=== PATIENT | female | born 1975 | race Caucasian/White ===

== ENCOUNTER 2017-04-21 11:50 | Emergency (ER) | payer OTHER, SELFPAY ==
[2017-04-21 11:53] VITALS: BP 116/83; PULSE 91; RESP 15; TEMP 36.8; O2SAT 91; BMI 17.1
[2017-04-21 12:35] VITALS: BP 107/76; PULSE 76; RESP 16; TEMP 37.1; O2SAT 94
[2017-04-21 12:38] VITALS: TEMP 37.1
[2017-04-21] MEDS: 0.9% Normal Saline 1,000 ML 999 ML IV (12:41)
--- NOTE | 2017-04-21 13:00 | RAD_ITS ---
STUDY: X-RAY CHEST REASON FOR EXAM: Female, 41 years old. Cough. TECHNIQUE: AP and lateral views of the chest. COMPARISON: Comparison is made with prior study dated June 14, 2015. FINDINGS: EKG electrodes are seen. A right-sided portacatheter is present. The tip is at the junction of the superior vena cava and right atrium. Mild elevation of the right hemidiaphragm. The lungs are clear. Scattered calcified granulomas. There is no demonstrated pleural abnormality. Normal size heart. Normal mediastinum and jose cruz. Normal visualized pulmonary arteries. There is atherosclerotic tortuosity of the aortic arch and descending thoracic aorta. There is demineralization of the osseous structures. Normal visualized ribs, clavicles, and shoulders. There is no demonstrated abnormality of the visualized soft tissue structures of the upper abdomen. RAD/Chest PA and Lateral IMPRESSION: No acute abnormality is seen. Electronically Signed: Vinny Loaiza MD at 13:32 EST Tel [phone], Service support ,
[2017-04-21 13:05] LABS: International Normalized Ratio 1.1
[2017-04-21 13:08] LABS: Partial Thromboplast Time 136.9 Seconds (24.1-36.2)
[2017-04-21 13:09] LABS: Absolute Neutrophil Count 0.9 X10^3/uL (2.0-7.7); Basophil# 0.03 X10^3/uL; Basophil% 0.7 % (0-1); Differential Indicated SCAN CRITERIA MET; Eosinophil# 0.08 X10^3/uL; Eosinophils% 1.7 % (0-5); Hematocrit 38.6 % (37-47); Hemoglobin 12.9 g/dl (12.0-15.0); Lymphocyte % 69.4 % (19-41); Mean Corp Hgb Conc 33.4 g/gl (32-36); Mean Corpuscular Hgb 30.8 pg (27.0-32.0); Mean Corpuscular Volume 92.1 fL (81-99); Mean Platelet Vol. 13.3 fl (6.2-12.0); Monocyte# 0.38 X10^3/uL; Monocyte% 8.2 % (0-10); Neutrophil # 0.92 X10^3/uL (2.7-7.7); POSITIVE COUNT NO; POSITIVE DIFFERENTIAL YES; POSITIVE MORPHOLOGY NO; Platelet Count 172 K/mm3 (150-450); RBC Distribution Width CV 17.3 % (11.6-14.6); RBC Distribution Width SD 57.8 fl (35.1-43.9); Red Blood Count 4.19 M/mm3 (4.2-5.4); White Blood Count 4.6 K/mm3 (4.4-11.0)
[2017-04-21 13:13] LABS: Prothrombin Time (Protime)PT. 13.9 SECONDS (11.7-14.9)
--- NOTE | 2017-04-21 13:14 | ED.RN ---
ptt 136.[address] lab[address] dr herr aware
[2017-04-21 13:16] LABS: Lactic Acid 1.4 mmol/L (0.4-2.0)
[2017-04-21 13:24] VITALS: BP 99/71; PULSE 66; RESP 19; O2SAT 94
[2017-04-21 13:25] LABS: ALB/GLOB Ratio 0.7 RATIO (0.9-2.4); AST(SGOT) 76 U/L (15-37); Alanine Aminotransfer ALT/SGPT 46 U/L (13-56); Albumin, Serum 2.3 g/dL (3.2-5.0); Alkaline Phosphatase 101 U/L (45-117); Anion Gap 4 (5-15); BUN 9 mg/dL (7-18); Calcium,Total 7.5 mg/dL (8.5-10.1); Chloride 100 mmol/L (98-107); Creatinine, Serum < 0.15 mg/dL (0.55-1.02); EST Glomerular Filtration Rate 581 mL/min (>60); Est Glom Filt Rate - Afr Amer 703 mL/min (>60); Estimated Creatinine Clearance 449.85 ml/min; Globulin 3.2 g/dL (2.2-4.2); Glucose 153 mg/dL (74-106); Potassium 4.1 mmol/L (3.5-5.1); Protein, Total 5.5 g/dL (6.4-8.2); Sodium Level 136 mmol/L (136-145)
[2017-04-21 13:31] LABS: Acanthocytes 1+; Anisocytosis 1+; Hypochromasia RARE; Platelet Estimate ADEQUATE (ADEQ); Target Cells 1+
[2017-04-21 14:03] VITALS: BP 100/71; PULSE 66; RESP 17; O2SAT 93
--- NOTE | 2017-04-21 14:18 | ED.DCSUM_ITS ---
- ER Visit Summary Date of Service: 04/21/17 Chief Complaint: Cough History of Present Illness: The patient is a [address] Mishra. She has a history of pancreatic cancer and has had an extensive surgery for this including removal of her spleen. She reports that she has metastases to her liver and is not on chemo currently as it is slow growing. Patient reports she has she has a cough that began approximately 1 week ago. She was seen at an outlying facility and told that she had influenza. However, testing for this was not performed. She reports that she has had a fever at highest of 103.4? and chills. Reports that that has actually improved. She states that her cough is nonproductive. She has mild shortness of breath that is increased with coughing or exertion. She has chest pain with coughing only. She denies any abdominal pain. She has had nausea and a poor appetite. No vomiting, diarrhea, melena, or hematochezia. No dysuria or frequency. She is on her menstrual period now. She reports that she has a headache that is 6 out of 10 severity and generalized weakness. Physical Examination: Vitals: Stable. Afebrile. General: Cachectic and well-developed. Head: Normocephalic atraumatic. Neck: Supple, no lymphadenopathy. No JVD. Nontender. Cardiovascular: Regular rate and rhythm. No murmurs. Respiratory: No respiratory distress. Clear to auscultation bilaterally. Abdominal: Soft, nontender, nondistended, normal bowel sounds. No guarding, rebound, or peritoneal signs. Back: Nontender. Extremities: Nontender, no edema. Skin: Normal color, no rash. Neurologic: Alert and oriented ?3. Cranial nerves II through XII are intact. Normal strength and sensation. Psych: Normal affect. Test Results: CBC is remarkable for segment neutrophils of 20 and lymphocytes of 69. This does suggest a viral process. Chem-7 is marked for a creatinine of less than 0.15, glucose of 153, calcium is 7.5. LFTs are marked for an AST of 76, total protein of 5.5, and albumin 2.3. INR is 1.1. PTT is 136.9. The blood was obtained from her port which I suspect had heparin still present as the source of the elevated PTT. Lactic acid is normal. Chest x-ray is negative. Influenza is negative. Emergency Department Course and Treatment: Patient was given a liter bolus of normal saline. She is resting comfortably. She feels improved and would like to go home. Treatment Plan: Patient will be discharged with symptomatic care. Push fluids. Follow-up with Dr. Mishra in 1-2 days if not improving. Return to the emergency department for any worsening symptoms. Disposition: To home in improved and stable condition. Impression: 1. URI. 2. Status post splenectomy. 3. Pancreatic cancer with metastases. This note was generated with [employer] dictation software. It may contain incorrect words, spelling, and punctuation that were not noted in review of the chart prior to signing ED Disposition - Plan for ED Patient: Disposition: Home or Assisted Living Chief Complaint: Cough Instructions: ED Upper Resp Infec No Abx Tx Referrals: Shanda Mishra MD [Primary Care Provider] - 3-5 Days if not improving
[2017-04-21 14:42] VITALS: BP 99/69; PULSE 70; RESP 18; O2SAT 96
== END 2017-04-21 14:44 | disposition home or self-care (01) ==
LOC: ED 12:30
PROVIDERS: Emergency Provider Emergency Medicine; Family Provider Internal Medicine; PCP Internal Medicine
DX: J06.9 Acute upper respiratory infection, unspecified (principal); C25.9 Malignant neoplasm of pancreas, unspecified; C78.7 Secondary malignant neoplasm of liver and intrahepatic bile duct; Z90.81 Acquired absence of spleen; Z79.4 Long term (current) use of insulin; Z79.899 Other long term (current) drug therapy
CPT/HCPCS: 36415; 36591; 71046; 80053; 83605; 85025; 85610; 85730; 87040; 87804; 96360; 96361; 99283; J7030; A4216

== ENCOUNTER 2017-11-07 12:30 | Outpatient (RCR) | payer MEDICARE, SELFPAY ==
--- NOTE | 2017-10-20 14:40 | HP.PTEVAL ---
Patient's Visit Information SHRUTHI PIKE is a 42 year old F referred to Physical Therapy by LINN WHELAN with a diagnosis of Polymyositis. Date of Evaluation: 10/20/17 Physical Therapist: Cher Williamson - Visit Plan Frequency: 2x /Week Duration: 4 Weeks Plan: 60 min pool apts- will need therapist in pool- focus on LE, UE core strength and endurance - Subjective Subjective: Patient reports polymyositis- autoimmune effects certain muscle groups and a pancreatic cancer survivor which has mets on liver which is stable. Two together over the last 8 years has made it hard to do anything. It comes in waves- has been on crazy high dose steroids since April. April hospitalized could not drink and eat. Do know she can get stronger. Had rehab at home when she was release- walker around the house- and table exercises (PT and OT). Legs got stronger faster than her arms-ADL's more than strength training. Current status: can walk with a walker for stability-FWW- can do ADL's like a commode- can't use her arms overhead- due to decreased strength. Can walk around the house with the walker but use outside of the home. Home is handicapped accessible. Does not use her wc inside at home. Has A with ADL's- but is left at home without assistance and does fine with small tasks. Single story home- laundry is on the same floor- has a chair lift to get to the basement. Does not drive- lift to get her inside her car. Always has head to toe pain that is mild- get stiff and sore in the AM aniket after physical therapy- worse in the AM- worst: 5/10- global pain. Agg: mornings, movement, being active, diet Eases: medication- better warm. If its cold outside she is very stiff. Best: 0/10. Currently painfree. Goals: wants to walk without her walker in public places. Has not had therapy since . PMHx/meds: no changes- see scanned into chart. No N/T. Had one fall- about a month ago- tripped over the entry way and a cat- did not hit her head but fractured her spine L1. Sore but no other issues with it. No stairs but would like to do them. Sleep is not disturbed. No exercise restrictions. - Objective Posture: Fh, slightly slumped posturing. Observation: bluish rebeca skin coloring in extremeties- muscle wasting in distal extremeties greater than proximal. Mobility- uses w/c I from lobby to exam room (approx 300 feet), sit to stand- mod A x 1, sitting to supine- min A with LE, supine to sit- CGA. Gait: FWW- amb approx 50 feet with knee extension- rigid pattern with no fluidity- step to always leading with her right- slight circumduction. Straight cane and SBA- same pattern as above (approx 50 feet). Balance: 15 sec good balance with wide EDGARDO and narrow EDGARDO with eyes open. 15 sec fair balance with increased muscle activation and sway narrow EDGARDO with eyes closed. SLS- able to lift opposite LE but unable to remove hands from bar. Heel raise/toe raise: able but minimal clearance of the floor in standing with UE A for balance. Sensation: WNL. ROM: LE: Ankle: WFL, Knee/Hip: Passive WNL limited with strength. Cervical ROM: WNL Shoulder: flexion: 45 degrees, abd: 45 degrees, ER: WNL, IR: to belly Elbow: WNL, Wrist/Hand: WNL. Strength: Ankle DF: 3+/5 PF: 3+/5, Knee: extn: 2+/5 flexion: 2+/5, Hip: 2+/5 throughout Core: fair Scap:fair minus Shoulder: 2+/5 throughout Elbow: 2+/5, Wrist: 3+/5, Slip Injector And Applicator: equal bilateral but poor. All mobility has significant compensation patterns for completion of task - Goals Goal 1:: Patient will be I with HEP and progression Goal Time Frame: 4-6 Weeks Goal 2:: Patient will ambulate >300 feet with LRD, no assistance safely Goal Time Frame: 4-6 Weeks Goal 3:: Patient will asc/desc 8 stairs x 4 with min A and 2 HR Goal Time Frame: 4-6 Weeks Goal 4:: Patient will sit to stand with mod I Goal Time Frame: 4-6 Weeks - Rehabilitation Potential Physical Therapy Diagnosis: Patient presents with hypomobility- she has decreased ROM, strength and muscular endurance leading to poor posture, decreased ability to transfer and abnormal gait pattern. Rehabilitation Potential: Fair - Anticipated Interventions Patient/Client Instruction: Educate patient on: Benefits of Fitness Program For the Purpose of:: To increase tolerance to activity/condition/position Therapeutic Exercise to Include: Strength training, Endurance training, Balance training, Agility training, Body mechanics, Postural training, Gait and locomotor training, In an aquatic setting, Passive ROM, Active ROM, Dynamic Lumbar Stabilization, Scapular Strength/Stabilization For the Purpose of:: To improve muscle performance and motor function Thank you for the opportunity to evaluate your patient. For Medicare and Medicare HMO plans, please review the plan of care and approve it. It will need to be FAXED BACK to us at [phone] for Medicare purposes. Please let me know if there are questions or concerns regarding this plan of care. Physician Signature: Date:
--- NOTE | 2018-03-18 08:58 | HP.PT.NRP ---
HP - Discharge Summary (1) - Patient Information SHRUTHI PIKE was seen in my office for initial evaluation on 10/20/17. The following Plan of Care was established for this patient: Initial Frequency: 2x /Week Initial Duration: 4 Weeks - Anticipated Interventions Patient/Client Instruction: Educate patient on: Benefits of Fitness Program For the Purpose of:: To increase tolerance to activity/condition/position Therapeutic Exercise to Include: Strength training, Endurance training, Balance training, Agility training, Body mechanics, Postural training, Gait and locomotor training, In an aquatic setting, Passive ROM, Active ROM, Dynamic Lumbar Stabilization, Scapular Strength/Stabilization For the Purpose of:: To improve muscle performance and motor function This patient was last seen in our office . Pertinent comments regarding their Physical therapy will appear below: Patient has not attended PT in over 12 weeks. Appropriate for d/c at this time- return to MD for further evaluation as needed. At this point I will be discontinuing this patient from physical therapy. I would be happy to see this patient again in the future if found appropriate by the physician. Thank you! JOYCE AmesT
== END 2017-11-07 19:00 | disposition home or self-care (01) ==
LOC: PT 12:30
PROVIDERS: Family Provider Internal Medicine; PCP Internal Medicine
DX: M33.20 Polymyositis, organ involvement unspecified (principal); C7A.8 Other malignant neuroendocrine tumors
CPT/HCPCS: 97113; 97163

== ENCOUNTER 2018-06-02 17:30 | Emergency (ER) | payer MEDICARE, SELFPAY ==
[2018-06-02 17:31] VITALS: BP 145/93; PULSE 95; RESP 16; TEMP 36.8; O2SAT 96; BMI 16.3
--- NOTE | 2018-06-02 18:52 | ED.DCSUM_ITS ---
- ER Visit Summary Date of Service: 06/02/18 Chief Complaint: Sent into the ER for asymptomatic pulmonary emboli History of Present Illness: The patient is a 42 F history of pancreatic CA with liver metastases. Undergone extensive surgery. Currently under the care of oncology at the [facility]. In the last day or so she had workups and staging done. Her CAT scan showed pulmonary emboli. She has had a known history of DVTs. And issues with oral anticoagulation with bleeding and other symptoms. Her applied psychology chair from the [facility] Dr. Newell wanted her to come into the ER and be started on subcu anticoagulation. Physical Examination: Middle-aged female no acute distress. Vital signs are stable afebrile. Heart rate 95. Pulse ox 96% on room air no hypoxia. Patient is without symptoms. No chest pain or shortness of breath. HEENT exam unremarkable. Neck nontender. Lungs clear to auscultation bilaterally. Heart regular rate and rhythm no murmur. Abdomen is soft and nontender. Nondistended. No peritoneal signs. Patient is moving all 4 extremities. Neurologically she is awake alert with no focal motor deficits. Test Results: I reviewed the patient's recent labs and she has normal renal function. Emergency Department Course and Treatment: I spoke to the patient's oncologist at the [facility] Dr. Newell. He is comfortable with her being started back on Fragmin. She initially was supposed to be on it but there was a miscommunication or misunderstanding by the patient on her medications. She will be written for Fragmin 200 mg/kg for 10,000 units once a day. For 1 months worth. And she will need to follow-up that prescription change at the first 30 days. We currently do not have fragment available in the hospital. Treatment Plan: Fragmin daily. Follow-up with her oncologist. Disposition: dc Impression: Asymptomatic, incidental findings of pulmonary emboli History of DVTs History of pancreatic CA with metastases This note was generated with [employer] dictation software. It may contain incorrect words, spelling, and punctuation that were not noted in review of the chart prior to signing ED Disposition - Plan for ED Patient: Referrals: Shanda Mishra MD [Primary Care Provider] -
--- NOTE | 2018-06-02 18:52 | ED.DEP ---
ED Disposition - Plan for ED Patient: Disposition: Home or Assisted Living Instructions: Pulmonary Embolism Prescriptions: Dalteparin Sodium,Porcine [Fragmin] 10,000 unit SQ DAILY #30 ml Referrals: Shanda Mishra MD [Primary Care Provider] - As Needed Additional Instructions: We will start her on Fragmin 10,000 unit injection per day. He will do this for the first 30 days and then they will typically lower the dose. So you will need a new prescription after the first 30 days. Watch for any signs of bleeding. Follow-up with your oncologist
[2018-06-02 18:54] VITALS: PULSE 85; RESP 16; O2SAT 96
[2018-06-02] MEDS: Enoxaparin 60 MG/0.6 ML Syringe 50 MG SC (19:22)
== END 2018-06-02 19:24 | disposition home or self-care (01) ==
PROVIDERS: Emergency Provider Emergency Medicine; Family Provider Internal Medicine; PCP Internal Medicine
DX: I26.99 Other pulmonary embolism without acute cor pulmonale (principal); C25.9 Malignant neoplasm of pancreas, unspecified; C78.7 Secondary malignant neoplasm of liver and intrahepatic bile duct; E11.9 Type 2 diabetes mellitus without complications; Z86.718 Personal history of other venous thrombosis and embolism; Z86.73 Personal history of transient ischemic attack (TIA), and cerebral infarction without residual deficits; Z79.4 Long term (current) use of insulin; Z72.0 Tobacco use
CPT/HCPCS: 96372; 99282

== ENCOUNTER 2019-03-21 16:07 | Emergency (ER) | payer MEDICARE, SELFPAY ==
[2019-03-21 16:08] VITALS: BP 125/99; PULSE 117; RESP 17; TEMP 37.6; O2SAT 93; BMI 14.1
[2019-03-21 16:15] VITALS: BP 125/99; PULSE 109; RESP 17; TEMP 37.6; O2SAT 92
--- NOTE | 2019-03-21 16:24 | ED.DCSUM_ITS ---
History of Present Illness Chief Complaint: Nausea/Vomiting Informant: Patient Onset: Days Context: Gradual Onset Narrative: Patient presents with nausea and vomiting for the past 3 days. She is a history of pancreatic cancer with mets to the liver. She is receiving injections every 3 weeks for cancer treatment. She calls this a non-chemotherapy form of chemotherapy. Patient reports increasing lower abdominal pain for the past 3 days. She had nausea with 2 episodes of vomiting. She is on Compazine for nausea which she states is not helping. She also ran out of her morphine yesterday. She has not noted fever or chills. - Past Medical History (1) Polymyositis Status: Chronic (2) DVT (deep venous thrombosis) Status: Chronic (3) S/P insertion of IVC (inferior vena caval) filter Status: Chronic (4) Pancreatic cancer Status: Chronic Past Medical History - Allergies and Home Meds Allergies/Adverse Reactions: Allergies Penicillins Allergy (Verified 03/21/19 16:07) Swelling Sulfa (Sulfonamide Antibiotics) Allergy (Verified 03/21/19 16:07) Swelling Primary Care Physician: Shanda Mishra MD [Primary Care Provider] - 3-5 Days if not improving Prior records reviewed: Yes Surgical History: - Smoking Status: Current every day smoker - Family History Maternal Family History: Reports: - - brain cancer lung cancer Paternal Family History: Reports: - - pancreatic cancer Review of Systems General: Denies: Chills, Fever Eyes: Denies: Visual changes - bilaterally ENT: Denies: Bilateral ear pain Cardiovascular: Denies: Chest pain Respiratory: Denies: Dyspnea, Cough Gastrointestinal: Reports: Abdominal pain, Nausea, Vomiting. Denies: Diarrhea Genitourinary: Denies: Dysuria Musculoskeletal: Denies: Extremity Pain Skin: Denies: Rash Neurological: Denies: Headache Psych: Denies: Depression Hematologic: Denies: Easy bruising Allergy: Denies: Uticaria Physical Exam Vital Signs/Narrative: Vital Signs Temp Pulse Resp BP Pulse Ox 03/21/19 16:15 99.6 F H 109 H 17 125/99 H 92 03/21/19 16:08 99.6 F H 117 H 17 125/99 H 93 Inital Vital Signs reviewed: Yes General: Well nourished, Well developed Head: Normocephalic ENT: Moist mucous membranes Neck: Supple Cardiovascular: Regular rate, Regular rhythm, Tachycardia Respiratory: No distress, CTA bilaterally Abdomen: Soft, Tender - Mild lower abdominal tenderness.. Negative for: Guarding, Rebound tenderness Extremities: Nontender Skin: Normal color Neurological: Alert, Oriented x3 Psychological: Normal affect Diagnostic/Tx/Re-eval Laboratory Results 03/21/19 03/21/19 16:30 16:30 WBC 9.1 RBC 5.57 H Hgb 16.7 H Hct 49.6 H MCV 89.0 MCH 30.0 MCHC 33.7 RDW Std Deviation 55.8 H RDW Coeff of Roxi 18.3 H Plt Count 232 MPV 13.6 H Immature Gran % (Auto) 0.400 Neut % (Auto) 61.1 Lymph % (Auto) 30.1 Sedgwick % (Auto) 7.1 Eos % (Auto) 0.4 Baso % (Auto) 0.9 Absolute Neuts (auto) 5.5 Absolute Lymphs (auto) 2.73 Nucleated RBC % 0 Sodium 133 L Potassium 4.0 Chloride 97 L Carbon Dioxide 28.0 Anion Gap 8 BUN 11 Creatinine 0.25 L Estim Creat Clear Calc 218.43 Est GFR (MDRD) Af Amer 394 Est GFR (MDRD) Non-Af 325 BUN/Creatinine Ratio 44.7 H Glucose 156 H Calcium 8.8 Total Bilirubin 1.20 H Direct Bilirubin 0.34 H AST 26 ALT 36 Alkaline Phosphatase 93 Total Protein 6.7 Albumin 2.9 L Globulin 3.8 Lipase 18 L - Medical Decision Making Patient was given IV fluids, morphine, Reglan, and Benadryl. On repeat evaluation she feels significantly improved. Blood work does indicate mild dehydration but overall numbers look similar to prior. She has a prescription for her morphine that she will refill tomorrow. I will send a prescription for Reglan to the pharmacy for her as she states this works better for her nausea. Addendum: As the nurse was discharging the patient family raise concern about the need for transfer to [facility]. They feel the patient needs to be transferred to be seen by her oncologist. Patient's abdominal examination is benign. Her blood work looks to be within her normal range other than her hemoglobin slightly concentrated. I spoke with Dr. Riley, on-call for the patient's oncologist, Dr. Newell. We reviewed her labs. She had imaging studies obtained 6 weeks ago and this was reviewed as well. Dr. Riley will leave a note for Dr. Newell to try to move the patient's next follow-up appointment sooner to reevaluate her. Patient and family are happy with this plan. ED Disposition - Plan for ED Patient: Disposition: Home or Assisted Living Diagnosis: Abdominal pain, Vomiting Instructions: VOMITING (7y-Adult) Prescriptions: Metoclopramide [Reglan] 10 mg PO 4X/DAY PRN #20 tab PRN Reason: Headache Transmission Status: Received by SANDR[facility] [facility] Referrals: Shanda Mishra MD [Primary Care Provider] - 3-5 Days if not improving
[2019-03-21] MEDS: Morphine 4 MG/ML Syringe IV (16:45)
[2019-03-21] MEDS: DiphenhydrAMINE 50 MG/ML Syringe 12.5 MG IV (16:46)
[2019-03-21] MEDS: Metoclopramide 10 MG/2 ML Vial 5 MG IV (16:46)
[2019-03-21] MEDS: 0.9% Normal Saline 1,000 ML 150 ML IV (17:07)
[2019-03-21 17:08] LABS: Absolute Lymphocyte Count 2.73 X10^3/uL (0.83-4.51); Absolute Neutrophil Count 5.5 X10^3/uL (2.0-7.7); Basophil# 0.08 X10^3/uL; Basophil% 0.9 % (0-1); Eosinophil# 0.04 X10^3/uL; Eosinophils% 0.4 % (0-5); Hematocrit 49.6 % (37-47); Hemoglobin 16.7 g/dL (12.0-15.0); Lymphocyte # 2.73 X10^3/ul (4.0); Lymphocyte % 30.1 % (19-41); Mean Corp Hgb Conc 33.7 g/dL (32-36); Mean Platelet Vol. 13.6 fl (6.2-12.0); Monocyte# 0.64 X10^3/uL; Monocyte% 7.1 % (0-10); NRBC Flagged by Analyzer 0 % (0-5); Neutrophil # 5.54 X10^3/uL (2.7-7.7); Neutrophil % 61.1 % (47-70); Platelet Count 232 K/mm3 (150-450); RBC Distribution Width CV 18.3 % (11.6-14.6); RBC Distribution Width SD 55.8 fl (35.1-43.9); Red Blood Count 5.57 M/mm3 (4.2-5.4); White Blood Count 9.1 K/mm3 (4.4-11.0)
[2019-03-21 17:15] VITALS: BP 133/94; PULSE 104; RESP 17; TEMP 37.4; O2SAT 93
[2019-03-21 17:20] LABS: AST(SGOT) 26 U/L (15-37); Alanine Aminotransfer ALT/SGPT 36 U/L (13-56); Albumin, Serum 2.9 g/dL (3.2-5.0); Alkaline Phosphatase 93 U/L (45-117); Anion Gap 8 (5-15); BUN 11 mg/dL (7-18); BUN/Creat Ratio 44.7 RATIO (10-20); Bilirubin, Direct 0.34 mg/dL (0.00-0.30); Calcium,Total 8.8 mg/dL (8.5-10.1); Chloride 97 mmol/L (98-107); Creatinine, Serum 0.25 mg/dL (0.55-1.02); EST Glomerular Filtration Rate 325 mL/min (>60); Est Glom Filt Rate - Afr Amer 394 mL/min (>60); Estimated Creatinine Clearance 218.43 ml/min; Globulin 3.8 g/dL (2.2-4.2); Glucose 156 mg/dL (74-106); Lipase 18 U/L (73-393); Protein, Total 6.7 g/dL (6.4-8.2); Sodium Level 133 mmol/L (136-145)
[2019-03-21] MEDS: 0.9% Saline Lock 10 ML Syringe IV (18:16)
--- NOTE | 2019-03-21 19:18 | ED.RN ---
PTS FAMILY DEMANDING US TO CALL HER CC ONC. SISTER, VIA PHONE, DEMANDS HER ONC EVALUATE HER. PT WAS GIVEN DISCHARGE INSTRUCTIONS, IV PULLED AND WHEELED TO LOBBY AND THEN RETURNED TO HER PREVIOUS ROOM. SECOND CALL PLACED TO CC MACHINE CELL TUBER FOR DR. HAMILTON FROM ONCOLOGY COORDINATOR.
--- NOTE | 2019-03-21 19:23 | ED.RN ---
AT 1815 THIS RN WENT TO D/C PT. PT FAMILY REPORTS CONCERN THAT PT NEEDS FURTHER EVALUATED, BUT PT DECLINES. THIS RN OFFERS TO HAVE PT TALK WITH DR. KLEIN. PT DECLINES, REPORTS SHE IS READY FOR DISCHARGE. PT PORT DE-ACCESSED, MONITOR REMOVED, AND PT READY TO BE DRESSES. PT RECEIVES PHONE CALL FROM FAMILY MEMBER REPORTING, SHRUTHI VIERA NEED TO BE TRANSFERRED TO [facility] AND EVALUATED BY ONCOLOGY. PT FINALLY AGREES WITH FAMILY MEMBER AFTER MUCH PERSUASION. DR. KLEIN INFORMED OF PT REQUEST. MANAGER ELECTRICAL INFORMED TO ZAK ONCOLOGIST AT [facility], PER DR. KLEIN REQUEST. PT INFORMED OF AWAITING RE-EVALUATION AT THIS TIME, AND PHONE CALL BACK FROM AT [facility].
== END 2019-03-21 19:52 | disposition home or self-care (01) ==
PROVIDERS: Emergency Provider Emergency Medicine; PCP Internal Medicine
DX: R10.30 Lower abdominal pain, unspecified (principal); R11.2 Nausea with vomiting, unspecified; C25.9 Malignant neoplasm of pancreas, unspecified; C78.7 Secondary malignant neoplasm of liver and intrahepatic bile duct; F17.200 Nicotine dependence, unspecified, uncomplicated; Z86.718 Personal history of other venous thrombosis and embolism
CPT/HCPCS: 36591; 80048; 80076; 83690; 85025; 96361; 96374; 96375; 99285; J7030; A4216

== ENCOUNTER 2019-10-19 09:22 | Inpatient (IN) | payer MEDICARE, SELFPAY ==
[2019-10-19] VITALS (13 sets, daily range): BP systolic 112–174; BP diastolic 77–137; PULSE 78–101; RESP 16–18; TEMP 36.8–37.2; O2SAT 90–99; BMI 15.3; BMI 15.1; BMI 15.2
--- NOTE | 2019-10-19 09:58 | CT_ITS ---
STUDY: CT ABDOMEN AND PELVIS WITH CONTRAST REASON FOR EXAM: Female, 44 years old. ABD PAIN SINCE FRIDAY/HX PANCREATIC CA, METS TO LIVER RADIATION DOSAGE (If Supplied By Facility): CTDIvol = ( 7.42 ) mGy, DLP = ( 256.12 ) mGycm TECHNIQUE: Transaxial images were obtained from the dome of the diaphragm to the symphysis pubis without oral contrast. IV 100mL Isovue-300 was administered. Sagittal and coronal images were reconstructed. Individualized dose optimization techniques were used for this CT. COMPARISON: Comparison is made with prior study dated 04/25/2015. FINDINGS: Minimal increased linear markings at the lung bases suggestive of mild scarring. The visualized portions of the heart are within normal limits. Embolization coils are seen in the left lobe of the liver. The previously seen anterior percutaneous biliary drainage catheter as been removed. Fatty infiltration of the liver. Normal gallbladder and extrahepatic biliary system. Normal spleen. There is diffuse atrophy of the pancreas. Normal bilateral adrenal glands. Normal right kidney. Normal left kidney. Normal visualized stomach. There are dilated loops of the small intestine with a non-distended colon consistent with a small bowel obstruction. Gas and fecal material are seen in the colon. The appendix is visualized and appears normal. Normal abdominal aorta. There is an IVC filter in place. There is borderline retroperitoneal lymphadenopathy with enlarged nodes no greater than 10mm in the short axis diameter. Normal urinary bladder. A small amount of fluid is seen in the pelvis. Normal abdominal wall. There is now evidence of almost complete collapse of the L2 vertebrae. CT/Abdomen/Pelvis W IV Cont ONLY IMPRESSION: Embolization coils seen in the left lobe of the liver. Findings incomplete distal small bowel obstruction. Small amount of fluid is seen in the pelvis. Almost complete collapse of the L2 vertebrae. Electronically Signed: Vinny Loaiza, at 11:26 EDT , Service support ,
--- NOTE | 2019-10-19 10:09 | ED.DCSUM_ITS ---
History of Present Illness <Stephane Tadeo - Last Filed: 10/19/19 22:06> Informant: Patient Narrative: Patient is a 44-year-old female who presents to the ED for nausea/vomiting and abdominal pain. The abdominal pain started 3 days ago. She states that it has been intermittent in severity. Currently rates it as a 3 out of 10 but gets up to an 8 out of 10. She does take on morphine. She had 2 episodes of vomiting today. This was nonbloody. She denies any change in bowel habits including any blood or black tarry stools. She denies any fevers or chills. She does have a history of pancreatic cancer with mets to the liver. She had her pancreas, spleen and her gallbladder removed. She has not undergone any chemo or radiation therapy. She is on chronic prednisone therapy. The majority the pain has been to the left and right of her bellybutton. Some radiation of the pain into her back. 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 She has a IVC filter. She denies any chest pain or shortness of breath. <Kamar Roth - Last Filed: 10/26/19 09:03> Chief Complaint: Abd Pain Past Medical History <Stephane Tadeo - Last Filed: 10/19/19 22:06> Prior records reviewed: Yes Past Medical History: - - Pancreatic cancer, DVT Surgical History: - Smoking Status: Current every day smoker - Family History Maternal Family History: Reports: - - brain cancer lung cancer Paternal Family History: Reports: - - pancreatic cancer <Kamar Roth - Last Filed: 10/26/19 09:03> - Allergies and Home Meds Allergies/Adverse Reactions: Allergies Penicillins Allergy (Verified 10/19/19 09:26) Swelling Sulfa (Sulfonamide Antibiotics) Allergy (Verified 10/19/19 09:26) Swelling Review of Systems All systems negative except as indicated General: Denies: Chills, Fever, Sweats Eyes: Denies: Visual changes - bilaterally, Diplopia ENT: Denies: Rhinorrhea, Sore throat Cardiovascular: Denies: Chest pain, Palpitations Respiratory: Denies: Dyspnea, Cough, Dyspnea on exertion Gastrointestinal: Reports: Abdominal pain, Nausea, Vomiting. Denies: Diarrhea, Melena, Hematochezia Genitourinary: Denies: Dysuria, Hematuria, Frequency Musculoskeletal: Denies: Back pain, Extremity Pain Skin: Denies: Rash, Wounds Neurological: Denies: Headache, Weakness, Numbness <Kamar Roth - Last Filed: 10/26/19 09:03> Physical Exam Vital Signs/Narrative: Vital Signs Temp Pulse Resp BP Pulse Ox 10/19/19 19:26 98.7 F 83 16 123/85 H 92 <Stephane Tadeo - Last Filed: 10/19/19 22:06> Vital Signs/Narrative: Vital Signs Temp Pulse Resp BP Pulse Ox 10/19/19 09:29 98.9 F 96 18 174/137 H 91 10/19/19 09:22 98.9 F 101 H 18 174/137 H 90 Inital Vital Signs reviewed: Yes General: Well nourished, Well developed, No Acute Distress Head: Normocephalic, Atraumatic Eyes: Perrl, EOMI ENT: Moist mucous membranes, No rhinorrhea Neck: Supple, Nontender Cardiovascular: Regular rhythm, No murmurs, Tachycardia - Mild Respiratory: No distress, CTA bilaterally, Chest nontender Abdomen: Nondistended, Tender - Mostly left-sided to deep palpation. No peritoneal signs. Back: Nontender, Normal Inspection Extremities: Nontender, No edema Skin: Normal color, No rash Neurological: Alert, Oriented x3, Cranial nerves II-XII grossly intact, Normal Strength, Normal Sensation Psychological: Normal affect, Normal Mood <Kamar Roth - Last Filed: 10/26/19 09:03> Diagnostic/Tx/Re-eval - Medical Decision Making Signed out to me by Dr. Roth. Patient was waiting in the emergency department for over 10 hours. There is no bed being given by [facility]. The decision was made to admit to our hospitalist awaiting transfer. Admitted in stable condition. <Stephane Tadeo - Last Filed: 10/19/19 22:06> - Medical Decision Making Patient presents to the ED with abdominal pain and nausea/vomiting. Currently rates the pain as a 3 out of 10 and does not want I think her pain at this time but is requesting antiemetic. Will treat with Zofran. Basic lab work being obtained along with CT scan of the abdomen/pelvis. CT scan of the abdomen/pelvis showed a obstruction. I did call our general surgeon who recommended she go back to the [facility] where she had her previous surgeries performed. He believes that this might be related to her new lumbar compression fracture causing an ileus. Patient states that she did have a fall within the past couple of weeks to months. She states that this is not abnormal for her to have falls and causing fractures. She was not previously seen for this. I did call and speak with the surgeon at the [facility] and they do accept the patient. We will plan on transfer at this time. Patient signed out due to end of shift. On-call surgeon did request an NG tube be placed. <Kamar oRth - Last Filed: 10/26/19 09:03> ED Disposition <Stephane Tadeo - Last Filed: 10/19/19 22:06> <Kamar Roth - Last Filed: 10/26/19 09:03> - Plan for ED Patient: Disposition: Acute Care Hospital [facility] Diagnosis: Small bowel obstruction, Compression fx, lumbar spine, Abdominal pain
[2019-10-19 10:13] LABS: Absolute Lymphocyte Count 2.55 X10^3/uL (0.83-4.51); Absolute Neutrophil Count 6.9 X10^3/uL (2.0-7.7); Basophil# 0.05 X10^3/uL; Basophil% 0.5 % (0-1); Eosinophil# 0.11 X10^3/uL; Eosinophils% 1.1 % (0-5); Hematocrit 44.4 % (37-47); Hemoglobin 15.8 g/dL (12.0-15.0); Lymphocyte # 2.55 X10^3/ul (4.0); Lymphocyte % 24.6 % (19-41); Mean Corp Hgb Conc 35.6 g/dL (32-36); Mean Corpuscular Hgb 32.4 pg (27.0-32.0); Mean Corpuscular Volume 91.2 fL (81-99); Mean Platelet Vol. 12.2 fl (6.2-12.0); Monocyte# 0.68 X10^3/uL; Monocyte% 6.6 % (0-10); NRBC Flagged by Analyzer 0 % (0-5); Neutrophil # 6.94 X10^3/uL (2.7-7.7); Neutrophil % 66.9 % (47-70); POSITIVE MORPHOLOGY YES; Platelet Count 222 K/mm3 (150-450); RBC Distribution Width CV 21.1 % (11.6-14.6); RBC Distribution Width SD 63.7 fl (35.1-43.9); Red Blood Count 4.87 M/mm3 (4.2-5.4); White Blood Count 10.4 K/mm3 (4.4-11.0)
[2019-10-19 10:16] LABS: Differential Indicated SCAN CRITERIA MET
[2019-10-19] MEDS: Morphine 4 MG/ML Syringe IV ×3 (10:29→23:14)
[2019-10-19] MEDS: Ondansetron 4 MG/2 ML Vial IV (10:29)
[2019-10-19] MEDS: 0.9% Normal Saline 1,000 ML 200 ML IV ×2 (10:29→19:42)
[2019-10-19 10:55] LABS: ALB/GLOB Ratio 0.9 RATIO (0.9-2.4); AST(SGOT) 17 U/L (15-37); Alanine Aminotransfer ALT/SGPT 22 U/L (13-56); Alkaline Phosphatase 72 U/L (45-117); Anion Gap 5 (5-15); Anisocytosis 1+; BUN 8 mg/dL (7-18); BUN/Creat Ratio 38.5 RATIO (10-20); Calcium,Total 8.6 mg/dL (8.5-10.1); Chloride 97 mmol/L (98-107); Creatinine, Serum 0.21 mg/dL (0.55-1.02); EST Glomerular Filtration Rate 394 mL/min (>60); Est Glom Filt Rate - Afr Amer 476 mL/min (>60); Estimated Creatinine Clearance 271.56 ml/min; Globulin 3.2 g/dL (2.2-4.2); Glucose 171 mg/dL (74-106); Potassium 3.9 mmol/L (3.5-5.1); Protein, Total 6.2 g/dL (6.4-8.2); Sodium Level 136 mmol/L (136-145)
[2019-10-19 10:56] LABS: Lipase < 10 U/L (73-393)
[2019-10-19 11:04] LABS: Red Blood Cells-Urine 0 SEEN /hpf (0-5); White Blood Cells 0 SEEN /hpf (0-5)
[2019-10-19 11:09] LABS: Color, Urine Amber (Yellow); Glucose, Dipstick Normal (Normal); Ketone-Dipstick 5 mg/dl (Negative); Leukocyte Esterase-Dipstick 25 /ul (Negative); Nitrite-Dipstick Negative (Negative); Occult Blood-Urine Negative /ul (Negative); Protein-Dipstick Negative (Negative); Urine Clarity Clear (Clear); Urine Urobilinogen 8 mg/dl (Normal)
[2019-10-19 11:11] LABS: Urine Bilirubin Dipstick 1 mg/dL (Negative)
[2019-10-19 11:22] LABS: Bacteria 2+ /hpf (None Seen); Mucous, Urine 2+ /hpf (<or=2+); Squamous Epithelial Cells - UA 5-10 SEEN /hpf (5-10)
[2019-10-19 11:24] LABS: Calcium Oxalate Crystals Ur 1+ /hpf (<or=2+)
--- NOTE | 2019-10-19 12:12 | NURSING ---
CALLED [facility] TRANSFER LINE, TALKED TO NOAH. CENSUS IS HIGH, COULD BE A WAIT FOR A BED. FAXED FACESHEET SHE WILL CALL BACK WITH A DOCTOR
--- NOTE | 2019-10-19 12:24 | NURSING ---
DR TEJAL YEAGER
--- NOTE | 2019-10-19 13:15 | RAD_ITS ---
STUDY: X-RAY - ABDOMEN/PELVIS REASON FOR EXAM: Female, 44 years old. Ng tube placement TECHNIQUE: Single AP view of the abdomen / pelvis. COMPARISON: None. FINDINGS: Mild increased markings at the left lung base suggestive of linear atelectasis and/or scarring. The tip of the nasogastric tube is at the gastroesophageal junction. A right-sided portacatheter is seen with the tip in the right atrium. A filter is seen within the inferior vena cava. RAD/Abdomen Single View (Portable) IMPRESSION: The tip of the nasogastric tube is at the gastroesophageal junction. Electronically Signed: Vinny Loaiza, at 14:05 EDT , Service support ,
[2019-10-19] MEDS: LORazepam 2 MG/ML Syringe 0.5 MG IV (13:59)
--- NOTE | 2019-10-19 16:33 | NURSING ---
CALLED [facility]. TALKED TO TERA. NO BED AT THIS TIME
--- NOTE | 2019-10-19 21:31 | HP.PCM_ITS ---
Problem List (1) Acute distal small bowel obstruction Status: Acute (2) Polymyositis Status: Chronic (3) DVT (deep venous thrombosis) Status: Chronic Qualifiers: DVT location: non-extremity vein Chronicity: acute Qualified Code(s): I82.90 - Acute embolism and thrombosis of unspecified vein (4) S/P insertion of IVC (inferior vena caval) filter Status: Chronic (5) Biliary dyskinesia Status: Chronic (6) Pancreatic cancer Status: Chronic Qualifiers: Pancreatic malignancy location: overlapping sites of pancreas Qualified Code(s): C25.8 - Malignant neoplasm of overlapping sites of pancreas (7) Abdominal pain Status: Acute Qualifiers: Abdominal location: periumbilical Qualified Code(s): R10.33 - Periumbilical pain History of Present Illness Date of Admission: 10/19/19 Chief Complaint: Abdominal pain for last 2 days The patient is a 44 year old F with history of CA pancreas status post Whipple surgery, liver metastasis and DVT and PE, hypercoagulable state came to ER with abdominal pain along with nausea and vomiting for 2 to 3 days. Pain is colicky/stabbing in character, with waxing and waning quality, baseline 3-4/10 with intermittent high, 8-10/10 in intensity, mainly located in periumbilical region. There is no exacerbating or relieving or precipitating factor. No fever. No jaundice. Patient did not had good flatus for last 3 days. Had a small dry and hard stool today. No hematemesis or melena. Had 2 episodes of vomiting, bilious in nature. CT abdomen done in ER shows distal small bowel obstruction with a small of fluid in the pelvis. Embolization coils in the left lobe of liver. Patient has been accepted by surgeon Dr. Alanis in [facility] on waiting for the bed. In the meantime, patient is admitted. Last admitted between April 25 to April 29, 2015 for sepsis secondary to biliary obstruction and DVT was transferred to [facility] Past Medical History Past Medical History (Chronic Problems): Chronic Problems Polymyositis (Chronic) DVT (deep venous thrombosis) (Chronic) S/P insertion of IVC (inferior vena caval) filter (Chronic) Biliary dyskinesia (Chronic) Pancreatic cancer (Chronic) Allergies Penicillins Allergy (Verified 10/19/19 09:26) Swelling Sulfa (Sulfonamide Antibiotics) Allergy (Verified 10/19/19 09:26) Swelling Home Medications: Ambulatory Orders Medication Instructions Recorded Escitalopram Oxalate [Lexapro] 20 mg PO DAILY 09/03/13 Levothyroxine [Synthroid] 75 mcg PO DAILY 09/03/13 Omeprazole [Prilosec] 20 mg PO BID 09/03/13 Lorazepam [Ativan] 1 mg PO BID PRN PRN 02/20/15 Cholecalciferol (Vitamin D3) 50,000 unit PO QODAY 05/19/15 [Decara] Hydroxychloroquine [Plaquenil] 200 mg PO DAILYCM 05/19/15 Insulin Lispro [Humalog] 80 unit SQ DAILY 05/19/15 Lipase/Protease/Amylase [Creon Dr 9 tab PO TIDCM 05/19/15 12,000 Units Capsule] Dalteparin Sodium,Porcine [Fragmin] 10,000 unit SQ DAILY #30 ml 06/02/18 Morphine Sulfate 15 mg PO BID 06/02/18 Teriparatide [Forteo] 20 mcg SQ DAILY 06/02/18 Metoclopramide [Reglan] 10 mg PO 4X/DAY PRN #20 tab 03/21/19 Surgical History: - Psychiatric History: No pertinent psych hx GOLDSMITH APPRENTICE History: No pertinent GOLDSMITH APPRENTICE history Smoking Status: Current every day smoker - *Family History Maternal History Items: - - brain cancer lung cancer Paternal History Items: - - pancreatic cancer Review of Systems Constitutional: Denies: Chills, Fever, Weight Change HEENT: Denies: Head Aches, Sinus Congestion, Sinus Drainage Cardiovascular: Denies: Chest Pain, Palpitations Respiratory: Denies: Cough, Shortness of breath at rest, Sputum production Gastrointestinal: Reports: Constipation, Nausea, Vomiting. Denies: Abdominal Pain, Dyspepsia, Hematochezia, Melena Genitourinary: Denies: Dysuria, Frequency Musculoskeletal: Denies: Joint Pain, Joint Tenderness Skin: Denies: Rash, Wounds Neurological: Denies: Numbness, Tingling, Focal weakness Psychiatric: Denies: Anxiety, Depression, Homicidal Ideations, Suicidal Ideations Hematologic/ Lymphatic: Denies: Easy Bruising, Easy Bleeding VTE Information - Inpt Only VTE Present on Admission: No VTE Mechan Device Prophylaxis: SCD's VTE Pharm Prophylaxis ordered?: Yes Patient Problems: Active and Suspected Problems Acute distal small bowel obstruction (Acute) - Physical Exam Vitals/I&O's: Vital Signs Temp Pulse Resp BP Pulse Ox 98.7 F 83 16 123/85 H 92 10/19/19 19:26 10/19/19 19:26 10/19/19 19:26 10/19/19 19:26 10/19/19 19:26 Oxygen Delivery Method Room Air Weight: 109 lb 12.643 oz Body Mass Index (BMI) 15.3 Finger Stick Blood Glucose 180 Intake and Output for Last 24 Hours 10/17/19 10/18/19 10/19/19 23:59 23:59 23:59 Intake Total 1000 / 1000 Balance 1000 / 1000 General: Alert, Oriented x3, Cooperative, - - Small body size. Severe protein calorie malnutrition. HEENT: Atraumatic, PERRLA, EOMI, Normocephalic Oral: Dry Mucosa, - - NG tube draining bilious fluid. Neck: Supple, No JVD, Negative Carotid Bruits, - - Right subclavian Mediport. Lungs: Clear to auscultation, Normal air movement, No rhonchi, No wheeze, No rales Cardiovascular: Regular rate, Regular Rhythm, Normal S1, Normal S2, No murmurs Abdomen: Soft, Bowel Sounds Not Present, Guarding, Tender - Tenderness present all over her abdomen mainly around umbilicus, No hernias noted, - - Upper abdominal midline surgical scar. Extremities: No edema, Capillary Refill Less than 3 Seconds Skin: No rashes, No breakdown Musculoskeletal: No Tenderness to Palpation of Joints or Extremities, Muscle Wasting, - - Diffuse muscle atrophy of upper and lower extremities, including intercostal and paravertebral muscles. Loss of subcutaneous fat. Has polymyositis. On wheelchair for 5 years Neurological: Cranial nerves II-XII grossly intact, Neuro grossly intact, - - DTR 1+. Psych/Mental Status: Normal Affect, Appropriate Laboratory Results 10/19/19 09:55: WBC 10.4, RBC 4.87, Hgb 15.8 H, Hct 44.4, MCV 91.2, MCH 32.4 H, MCHC 35.6, RDW Std Deviation 63.7 H, RDW Coeff of Roxi 21.1 H, Plt Count 222, MPV 12.2 H, Immature Gran % (Auto) 0.300, Neut % (Auto) 66.9, Lymph % (Auto) 24.6, [place] % (Auto) 6.6, Eos % (Auto) 1.1, Baso % (Auto) 0.5, Absolute Neuts (auto) 6.9, Absolute Lymphs (auto) 2.55, Nucleated RBC % 0, Anisocytosis 1+ 10/19/19 09:55: Sodium 136, Potassium 3.9, Chloride 97 L, Carbon Dioxide 34.0 H, Anion Gap 5, BUN 8, Creatinine 0.21 L, Estim Creat Clear Calc 271.56, Est GFR (MDRD) Af Amer 476, Est GFR (MDRD) Non-Af 394, BUN/Creatinine Ratio 38.5 H, Glucose 171 H, Calcium 8.6, Total Bilirubin 0.80, AST 17, ALT 22, Alkaline Phosphatase 72, Troponin I < 0.015, Total Protein 6.2 L, Albumin 3.0 L, Globulin 3.2, Albumin/Globulin Ratio 0.9, Lipase < 10 L 10/19/19 10:58: Urine Color Yelitza, Urine Clarity Clear, Urine pH 6.0, Ur Specific [place] 1.020, Urine Protein Negative, Urine Glucose (UA) Normal, Urine Ketones 5 H, Urine Occult Blood Negative, Urine Nitrite Negative, Urine Bilirubin 1 H, Urine Urobilinogen 8 H, Ur Leukocyte Esterase 25 H, Urine RBC 0 SEEN, Urine WBC 0 SEEN, Ur Squamous Epith Cells 5-10 SEEN, Calcium Oxalate Cry stal 1+, Urine Bacteria 2+, Urine Mucus 2+ Current Medications Sodium Chloride () 1,000 mls @ 200 mls/hr IV .Q5H [facility] Last Admin: 10/19/19 19:42 Dose: 200 mls/hr Documented by: Assessment/Plan All Active Problems Acute distal small bowel obstruction (Acute) Abdominal pain (Acute) The patient is a 44 year old F with history of CA pancreas, liver metastasis and DVT and PE, hypercoagulable state came to ER with abdominal pain along with nausea and vomiting for 2 to 3 days, constipation and CT finding suggestive of small bowel obstruction 1. Distal small bowel obstruction most probably due to adhesions: Patient is being admitted on MedSur floor. KUB x-ray shows tip of NG tube at GE junction. Advised to push 6 cm down. Then, NG suction with medium, constant wall suction. IV fluid Ringer lactate, pain management, n.p.o. and conservative management until transfer to [facility]. CT abdomen done in ER shows distal small bowel obstruction with a small of fluid in the pelvis. Embolization coils in the left lobe of liver. Patient has been accepted by surgeon Dr. Alanis in [facility], waiting for the bed. 2. CA pancreas with metastasis to liver, probably neuroendocrine tumor with history of diffuse DVT and PE status post IVC filter, hypercoagulable state secondary to CA pancreas: On her home medication, there is no anticoagulant agent or Lovenox. Lovenox 40 mg q. twice daily along with SCDs. Currently no signs and symptoms of DVT/PE. D-dimer is ordered. If d-dimer is high, will do full anticoagulation. 3. History of biliary sepsis and obstruction status post biliary drainage: Patient had percutaneous biliary drainage about 3 years ago which was removed. This happened during last admission between April 25 to April 29, 2015 and was transferred to [facility]. 4 Polymyositis on prednisone: Continue prednisone. 5. 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 Monitor as per home schedule. DVT prophylaxis: As mentioned above Living will/advanced directive/end of life care: Patient does not have living will or advanced directive or DURABLE POWER OF LOGISTICS PROJECT MANAGER for health. Patient expressed her desire to be full code. After discussion of procedures involved with full code, DNR CC arrest and DNR CC, the patient opted for full code. Patient does want artificial life support including intubation, tube feed, ventilator and/chest compression, central venous catheter, vasopressor and DC shock if needed DNR CC arrest. Total time spent in [id number] encounter in discussion of advanced directive 16 minutes. Clinical Impression(s) from Imaging Studies Abdomen/Pelvis CT 10/19/19 09:58 IMPRESSION: Embolization coils seen in the left lobe of the liver. Findings incomplete distal small bowel obstruction. Small amount of fluid is seen in the pelvis. Almost complete collapse of the L2 vertebrae. Electronically Signed: Vinny Loaiza, at 11:26 EDT , Service support , KUB X-Ray 10/19/19 13:15 IMPRESSION: The tip of the nasogastric tube is at the gastroesophageal junction. Electronically Signed: Vinny Loaiza, at 14:05 EDT , Service support , Inpatient E&M: [id number] Init Hosp L3 Procedures: [id number] Advncd Care Plan 30 Min
--- NOTE | 2019-10-19 22:18 | ED.RN ---
DR REZA REQUESTED THAT THE NG BE ADVANCED DUE TO TIP NOT BEING DOWN FAR ENOUGH, THIS NURSE WENT TO ADVANCE THE NG AND THE PT STATED A NURSE ALREADY ADVANCED IT EARLIER FOR THE SAME REASON. CHARGE NURSE AWARE AND ER DR LAUREANO. OUT PUT IS GOOD FROM NG IS GOOD, AIR BOLUS WAS PREFORMED BY THIS NURSE AND IT WAS POSITIVE. THIS NURSE DID NOT ADVANCE THE NG ANY FARTHER PER PT REFUSAL TO DO SO AGAIN.
[2019-10-19] MEDS: Lactated Ringers 1,000 ML 100 ML IV (23:16)
[2019-10-19] MEDS: proCHLORPERazine 10 MG/2 ML Vial 5 MG IV (23:26)
[2019-10-20 00:06] LABS: Bedside Glucose 199 mg/dL (70-110)
[2019-10-20] MEDS: 0.9% Saline Lock 10 ML Syringe IV ×2 (01:10→06:47)
[2019-10-20] MEDS: LORazepam 2 MG/ML Syringe 1 MG IV (01:10)
[2019-10-20 06:13] LABS: Absolute Lymphocyte Count 2.28 X10^3/uL (0.83-4.51); Absolute Neutrophil Count 4.2 X10^3/uL (2.0-7.7); Basophil# 0.05 X10^3/uL; Basophil% 0.7 % (0-1); Eosinophil# 0.08 X10^3/uL; Eosinophils% 1.1 % (0-5); Hematocrit 41.3 % (37-47); Hemoglobin 13.6 g/dL (12.0-15.0); Lymphocyte # 2.28 X10^3/ul (4.0); Lymphocyte % 31.2 % (19-41); Mean Corp Hgb Conc 32.9 g/dL (32-36); Mean Corpuscular Hgb 30.1 pg (27.0-32.0); Mean Corpuscular Volume 91.4 fL (81-99); Mean Platelet Vol. 12.4 fl (6.2-12.0); Monocyte# 0.66 X10^3/uL; NRBC Flagged by Analyzer 0 % (0-5); Neutrophil # 4.22 X10^3/uL (2.7-7.7); Neutrophil % 57.7 % (47-70); Platelet Count 231 K/mm3 (150-450); RBC Distribution Width CV 19.7 % (11.6-14.6); RBC Distribution Width SD 63.9 fl (35.1-43.9); Red Blood Count 4.52 M/mm3 (4.2-5.4); White Blood Count 7.3 K/mm3 (4.4-11.0)
[2019-10-20 06:39] VITALS: BP 134/87; PULSE 94; RESP 18; TEMP 37.5; O2SAT 95
[2019-10-20] MEDS: proCHLORPERazine 10 MG/2 ML Vial 5 MG IV (06:47)
[2019-10-20] MEDS: Morphine 4 MG/ML Syringe IV ×4 (06:47→23:43)
[2019-10-20 07:08] LABS: Anion Gap 5 (5-15); BUN 10 mg/dL (7-18); Calcium,Total 7.5 mg/dL (8.5-10.1); Chloride 103 mmol/L (98-107); EST Glomerular Filtration Rate 574 mL/min (>60); Est Glom Filt Rate - Afr Amer 695 mL/min (>60); Glucose 160 mg/dL (74-106); Magnesium 1.6 mg/dL (1.6-2.6); Potassium 3.7 mmol/L (3.5-5.1); Sodium Level 138 mmol/L (136-145)
[2019-10-20 07:30] VITALS: O2SAT 92
[2019-10-20 07:35] LABS: Bedside Glucose 156 mg/dL (70-110)
[2019-10-20 07:59] LABS: Creatinine, Serum < 0.15 mg/dL (0.55-1.02)
[2019-10-20 08:00] LABS: BUN/Creat Ratio 66.7 RATIO (10-20); Estimated Creatinine Clearance 377.16 ml/min
[2019-10-20] MEDS: Lactated Ringers 1,000 ML 100 ML IV (09:23)
[2019-10-20] MEDS: Enoxaparin 40 MG/0.4 ML Syringe SC ×2 (09:27→21:09)
[2019-10-20 10:00] VITALS: BP 130/80; PULSE 90; RESP 16; TEMP 37.2; O2SAT 95
--- NOTE | 2019-10-20 10:28 | CASEMGMT ---
Social Work Note Per operational meteorologist questions, pt has completed HCPOA, hasn't provided copy to [facility] but is able to bring in copies. Pt hasn't completed LW. Vania Bello SANDING SUPERVISOR, CHIEF INTERNAL AUDITOR
--- NOTE | 2019-10-20 10:48 | PCM.PROGNOTE ---
Patient Problems: Active and Suspected Problems Acute distal small bowel obstruction (Acute) Subjective: Patient was seen and examined today, she is resting quietly, she has not complained of any abdominal pain nausea or vomiting at this time. We are currently waiting and okay for transfer to [facility] for further treatment, bed was not available and the patient had to be admitted yesterday. - Physical Exam Vitals/I&O's: Vital Signs Temp Pulse Resp BP Pulse Ox 99.5 F H 94 18 134/87 H 92 10/20/19 06:39 10/20/19 06:39 10/20/19 06:39 10/20/19 06:39 10/20/19 07:30 Oxygen Delivery Method Room Air Weight: 49.4 kg Body Mass Index (BMI) 15.1 Finger Stick Blood Glucose 180 Intake and Output for Last 24 Hours 10/18/19 10/19/19 10/20/19 23:59 23:59 23:59 Intake Total 1111.67 / 1111.67 / Balance 1111.67 / 1111.67 / General: Alert, Oriented x3, Cooperative, No apparent distress, Well developed HEENT: Atraumatic, PERRLA, EOMI, Normocephalic Oral: Moist Mucosa Neck: Supple, No JVD, Trachea Midline, Thyroid Normal Size and Texture Lungs: Clear to auscultation, Normal air movement, No rhonchi, No wheeze, No rales Cardiovascular: Regular rate, Regular Rhythm, Normal S1, Normal S2, No murmurs, PMI Normal, No rub noted Abdomen: Soft, Non Tender, Non-Distended, Hypoactive Bowel Sounds Extremities: No clubbing, No cyanosis, No edema, Capillary Refill Less than 3 Seconds Skin: No rashes, No breakdown Musculoskeletal: No Tenderness to Palpation of Joints or Extremities Neurological: Cranial nerves II-XII grossly intact, Neuro grossly intact, Sensory exam intact to light touch and pain, Coordination normal Psych/Mental Status: Normal Affect, Appropriate, Alert and oriented to time, place, person, mood and affect Laboratory Results 10/19/19 09:55: Anisocytosis 1+ 10/19/19 09:55: Sodium 136, Potassium 3.9, Chloride 97 L, Carbon Dioxide 34.0 H, Anion Gap 5, BUN 8, Creatinine 0.21 L, Estim Creat Clear Calc 271.56, Est GFR (MDRD) Af Amer 476, Est GFR (MDRD) Non-Af 394, BUN/Creatinine Ratio 38.5 H, Glucose 171 H, Calcium 8.6, Total Bilirubin 0.80, AST 17, ALT 22, Alkaline Phosphatase 72, Troponin I < 0.015, Total Protein 6.2 L, Albumin 3.0 L, Globulin 3.2, Albumin/Globulin Ratio 0.9, Lipase < 10 L 10/19/19 10:58: Urine Color Yelitza, Urine Clarity Clear, Urine pH 6.0, Ur Specific [place] 1.020, Urine Protein Negative, Urine Glucose (UA) Normal, Urine Ketones 5 H, Urine Occult Blood Negative, Urine Nitrite Negative, Urine Bilirubin 1 H, Urine Urobilinogen 8 H, Ur Leukocyte Esterase 25 H, Urine RBC 0 SEEN, Urine WBC 0 SEEN, Ur Squamous Epith Cells 5-10 SEEN, Calcium Oxalate Crystal 1+, Urine Bacteria 2+, Urine Mucus 2+ 10/19/19 23:36: POC Glucose 199 H 10/20/19 05:46: WBC 7.3, RBC 4.52, Hgb 13.6, Hct 41.3, MCV 91.4, MCH 30.1, MCHC 32.9 D, RDW Std Deviation 63.9 H, RDW Coeff of Roxi 19.7 H, Plt Count 231, MPV 12.4 H, Immature Gran % (Auto) 0.300, Neut % (Auto) 57.7, Lymph % (Auto) 31.2, [place] % (Auto) 9.0, Eos % (Auto) 1.1, Baso % (Auto) 0.7, Absolute Neuts (auto) 4.2, Absolute Lymphs (auto) 2.28, Nucleated RBC % 0 10/20/19 05:46: Sodium 138, Potassium 3.7, Chloride 103, Carbon Dioxide 30.0, Anion Gap 5, BUN 10, Creatinine < 0.15 L, Estim Creat Clear Calc 377.16, Est GFR (MDRD) Af Amer 695, Est GFR (MDRD) Non-Af 574, BUN/Creatinine Ratio 66.7 H, Glucose 160 H, Calcium 7.5 L, Magnesium 1.6 10/20/19 06:37: POC Glucose 156 H Current Medications Acetaminophen (Tylenol) 650 mg RECTAL Q4H PRN PRN PRN Reason: Pain Score 1-10/Temp > 100.7 F Albuterol Sulfate (Ventolin Aerosols) 2.5 mg INHALATION Q2H PRN PRN PRN Reason: Shortness of Breath/Wheezing Dextrose (D50w Syringe) 0 gm IV X1 PRN; Protocol PRN Reason: Hypoglycemia Enoxaparin Sodium (Lovenox) 40 mg SC Q12 [facility] Last Admin: 10/20/19 09:27 Dose: 40 mg Documented by: Glucagon () 1 mg IM .X1 PRN PRN Reason: Hypoglycemia Lactated Ringer's () 1,000 mls @ 100 mls/hr IV .Q10H [facility] Last Infusion: 10/20/19 09:42 Dose: 100 mls/hr Documented by: Pantoprazole Sodium 40 mg/ (Sodium Chloride) 110 mls @ 330 mls/hr IV Q24 [facility] Last Infusion: 10/20/19 09:42 Dose: Infused Documented by: Insulin Human Lispro (Humalog Kwikpen (Bkc)) 0 unit SC ACHS [facility]; Protocol Last Admin: 10/20/19 06:47 Dose: Not Given Documented by: Lorazepam (Ativan) 1 mg IV Q6H PRN PRN PRN Reason: ANXIETY Last Admin: 10/20/19 01:10 Dose: 1 mg Documented by: Morphine Sulfate () 2 mg IV Q3H PRN PRN PRN Reason: Pain Score 4-5/10 Morphine Sulfate () 4 mg IV Q3H PRN PRN PRN Reason: Pain Score 6-10/10 Last Admin: 10/20/19 06:47 Dose: 4 mg Documented by: Ondansetron HCl (Zofran) 4 mg IV Q8H PRN PRN PRN Reason: NAUSEA/VOMITING Prochlorperazine Edisylate (Compazine Iv) 5 mg IV Q4H PRN PRN PRN Reason: Breakthrough nausea/vomiting Last Admin: 10/20/19 06:47 Dose: 5 mg Documented by: Sodium Chloride () 10 - 40 ml IV UD PRN PRN Reason: SALINE FLUSH Last Admin: 10/20/19 06:47 Dose: 10 ml Documented by: Medical Necessity - Tobacco Use Smoking Status: Current every day smoker Assessment/Plan All Active Problems Acute distal small bowel obstruction (Acute) Abdominal pain (Acute) #1 partial small bowel obstruction-I have decided to have general surgery see the patient and give an opinion as to whether conservative care would likely succeed in this case, I talked with Dr. Almendarez by phone and he is graciously agreed to see the patient. IV fluids will continue for now and patient has NG suction with minimal amounts of drainage from the NG. I do not feel patient needs to be in isolation, I do not feel the patient needs a C. difficile test on her stool. #2 cachexia #3 past history of pancreatic cancer with history of Whipple's procedure approximately 6 years ago Inpatient E&M: [id number] [facility] Hosp L2
[2019-10-20 11:41] LABS: Bedside Glucose 84 mg/dL (70-110)
--- NOTE | 2019-10-20 13:45 | NURSING ---
aware still no bed at [facility] per transfer center.
--- NOTE | 2019-10-20 13:47 | RAD_ITS ---
STUDY: X-RAY - ABDOMEN/PELVIS REASON FOR EXAM: Female, 44 years old. VERIFY NG PLACEMENT TECHNIQUE: Single AP view of the abdomen / pelvis. COMPARISON: Comparison is made with prior examination dated 10/19/2019. FINDINGS: Mild increased linear markings at the lung bases more prominent on the right side. The tip of the nasogastric tube is in the body portion of the stomach just distal to the gastroesophageal junction. Residual mild dilatation of the small bowel loops. A filter is seen within the inferior vena cava. Normal soft tissue structures. Normal visualized osseous structures. RAD/Abdomen Single View IMPRESSION: The tip of the nasogastric tube is in the body portion of the stomach just distal to the gastroesophageal junction. Electronically Signed: Vinny Loaiza, at 14:34 EDT , Service support ,
[2019-10-20 16:00] VITALS: BP 126/79; PULSE 84; RESP 16; TEMP 36.9; O2SAT 97
--- NOTE | 2019-10-20 16:00 | NURSING ---
Order to advance NG tube 4 inches completed
--- NOTE | 2019-10-20 16:17 | PCM.CONS.GEN ---
Problem List (1) Acute distal small bowel obstruction Status: Acute Reason for Consult Date of Consultation: 10/20/19 History of Present Illness: The patient is a 44 year old F been asked to see by Dr. Skinner today for surgical input regarding small bowel obstruction and a written copy of my consult will be present in the charting. This is a patient who presented to the [facility] emergency room yesterday with a 3-day history of crampy abdominal pain with subsequent nausea and vomiting. The patient has a remote history of a neuroendocrine tumor of the pancreas. She describes a total pancreatectomy with splenectomy and partial gastrectomy. She claims that postoperatively she became septic and required a second operation. She remembers being quite ill requiring a wound VAC. That operation apparently approximately 6 or 7 years ago. She has known liver metastasis. Very slowly progressing. At a secondary operation she also had an appendectomy. She is not currently on any chemotherapy. Prior to her presentation she was feeling her normal self. 2 months ago she fell causing a compression fracture of her back. 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 She denies any particular findings that would suggest a more occult elusive progression of her disease. She claims that until 3 days ago she was feeling her normal self. According to records she was admitted to the [facility] April 25-2015 for sepsis secondary to biliary obstruction. She also had DVT. She was transferred to [facility] at that time. Her oncologic care is provided at [facility]. She has an indwelling vena cava filter. On her presentation yesterday her white blood cell count was 10.4 with a hemoglobin 15.8 hematocrit 44.4 platelet count 222,000. No shift. BUN was 8 and creatinine 0.21. Albumin was 3. Liver function tests otherwise normal. Lipase less than 10. Today her white blood cell count was 7.3 with a hemoglobin 13.6 medical at 41.3 platelet count 231,000. By report yesterday through the emergency room arrangements were made to transfer her back to [facility]. As there was a delay in the transfer the patient was subsequently admitted. The patient was then seen by different hospitalist and recommendations for surgical consultation locally was made. Her primary care physician Dr. Shanda Mishra. A CT scan was obtained yesterday showing bibasilar scarring. Embolization coils in the left lobe of the liver. Absence of previous percutaneous biliary drain. States there is a normal gallbladder the patient states that she has had a cholecystectomy. Dilated loops of small intestines with nondistended colon consistent with small bowel obstruction. I view the left colon is decompressed. Vena cava filter in place. Small amount of ascites On reviewing her input and output it appeared the NG tube was not having any output. I contacted nursing staff and I could see that on the placement film the NG tube was in the esophagus. From the emergency room nursing report the NG tube had been advanced. I asked for repeat abdominal x-ray. This demonstrates that barely the tip of the NG tube is in the stomach with a sidehole in the distal esophagus. I again asked for significant for NG advancement of the NG tube to get this tube into the stomach. The patient now appears to be draining bilious material. She states that the severity of her abdominal pain is improved over the past 3 days. She still has some waves of cramping. She has not had any flatus or bowel movement. She has some mild gagging but she is not sure whether it secondary to the NG tube or other. Past Medical History Past Medical History (Chronic Problems): Chronic Problems Polymyositis (Chronic) DVT (deep venous thrombosis) (Chronic) S/P insertion of IVC (inferior vena caval) filter (Chronic) Biliary dyskinesia (Chronic) Pancreatic cancer (Chronic) Allergies Penicillins Allergy (Verified 10/19/19 09:26) Swelling Sulfa (Sulfonamide Antibiotics) Allergy (Verified 10/19/19 09:26) Swelling Home Medications: Ambulatory Orders Medication Instructions Recorded Escitalopram Oxalate [Lexapro] 20 mg PO DAILY 09/03/13 Levothyroxine [Synthroid] 75 mcg PO DAILY 09/03/13 Omeprazole [Prilosec] 20 mg PO BID 09/03/13 Lorazepam [Ativan] 1 mg PO BID PRN PRN 02/20/15 Cholecalciferol (Vitamin D3) 50,000 unit PO QODAY 05/19/15 [Decara] Hydroxychloroquine [Plaquenil] 200 mg PO DAILYCM 05/19/15 Insulin Lispro [Humalog] 80 unit SQ DAILY 05/19/15 Lipase/Protease/Amylase [Creon Dr 9 tab PO TIDCM 05/19/15 12,000 Units Capsule] Dalteparin Sodium,Porcine [Fragmin] 10,000 unit SQ DAILY #30 ml 06/02/18 Morphine Sulfate 15 mg PO BID 06/02/18 Teriparatide [Forteo] 20 mcg SQ DAILY 06/02/18 Metoclopramide [Reglan] 10 mg PO 4X/DAY PRN #20 tab 03/21/19 Surgical History: - Psychiatric History: No pertinent psych hx 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 Smoking Status: Current every day smoker - *Family History Maternal History Items: - - brain cancer lung cancer Paternal History Items: - - pancreatic cancer Review of Systems Constitutional: Denies: Chills, Fever HEENT: Denies: Difficulty Swallowing Cardiovascular: Denies: Chest Pain Respiratory: Denies: Cough Gastrointestinal: Reports: Abdominal Pain Musculoskeletal: Reports: - - Diffuse body pain secondary to polymyositis Endocrine: Reports: Change in Body Habitus - 5 pound weight loss Patient Problems: Active and Suspected Problems Acute distal small bowel obstruction (Acute) - Physical Exam Vitals/I&O's: Vital Signs Temp Pulse Resp BP Pulse Ox 98.9 F 90 16 130/80 H 95 10/20/19 10:00 10/20/19 10:00 10/20/19 10:00 10/20/19 10:00 10/20/19 10:00 Oxygen Delivery Method Room Air Weight: 108 lb 14.534 oz Body Mass Index (BMI) 15.1 Finger Stick Blood Glucose 180 Intake and Output for Last 24 Hours 10/18/19 10/19/19 10/20/19 23:59 23:59 23:59 Intake Total 1111.67 / 1111.67 2051.67 / 2051.67 Output Total 600 / 600 Balance 1111.67 / 1111.67 1451.67 / 1451.67 General: Alert, Oriented x3, Cooperative, - - Oral mucosa appears very dry. HEENT: Atraumatic Oral: Dry Mucosa Lungs: Clear to auscultation, Normal air movement Cardiovascular: Regular rate, Regular Rhythm Abdomen: Soft, Non Tender, Distended - Midline epigastric wound broadly healed consistent with a delayed wound healing. Bulbous mostly lower abdomen, soft, no palpable herniation, nontender Extremities: No Calf Tenderness Musculoskeletal: Muscle Wasting Neurological: - - Normal cognition Psych/Mental Status: Normal Affect Laboratory Results 10/19/19 23:36: POC Glucose 199 H 10/20/19 05:46: WBC 7.3, RBC 4.52, Hgb 13.6, Hct 41.3, MCV 91.4, MCH 30.1, MCHC 32.9 D, RDW Std Deviation 63.9 H, RDW Coeff of Roxi 19.7 H, Plt Count 231, MPV 12.4 H, Immature Gran % (Auto) 0.300, Neut % (Auto) 57.7, Lymph % (Auto) 31.2, [place] % (Auto) 9.0, Eos % (Auto) 1.1, Baso % (Auto) 0.7, Absolute Neuts (auto) 4.2, Absolute Lymphs (auto) 2.28, Nucleated RBC % 0 10/20/19 05:46: Sodium 138, Potassium 3.7, Chloride 103, Carbon Dioxide 30.0, Anion Gap 5, BUN 10, Creatinine < 0.15 L, Estim Creat Clear Calc 377.16, Est GFR (MDRD) Af Amer 695, Est GFR (MDRD) Non-Af 574, BUN/Creatinine Ratio 66.7 H, Glucose 160 H, Calcium 7.5 L, Magnesium 1.6 10/20/19 06:37: POC Glucose 156 H 10/20/19 11:34: POC Glucose 84 Current Medications Acetaminophen (Tylenol) 650 mg RECTAL Q4H PRN PRN PRN Reason: Pain Score 1-10/Temp > 100.7 F Albuterol Sulfate (Ventolin Aerosols) 2.5 mg INHALATION Q2H PRN PRN PRN Reason: Shortness of Breath/Wheezing Dextrose (D50w Syringe) 0 gm IV X1 PRN; Protocol PRN Reason: Hypoglycemia Enoxaparin Sodium (Lovenox) 40 mg SC Q12 [facility] Last Admin: 10/20/19 09:27 Dose: 40 mg Documented by: Glucagon () 1 mg IM .X1 PRN PRN Reason: Hypoglycemia Lactated Ringer's () 1,000 mls @ 100 mls/hr IV .Q10H [facility] Last Infusion: 10/20/19 09:42 Dose: 100 mls/hr Documented by: Pantoprazole Sodium 40 mg/ (Sodium Chloride) 110 mls @ 330 mls/hr IV Q24 [facility] Last Infusion: 10/20/19 09:42 Dose: Infused Documented by: Insulin Human Lispro (Humalog Kwdanapen (Bkc)) 0 unit SC ACHS [facility]; Protocol Last Admin: 10/20/19 11:35 Dose: Not Given Documented by: Lorazepam (Ativan) 1 mg IV Q6H PRN PRN PRN Reason: ANXIETY Last Admin: 10/20/19 01:10 Dose: 1 mg Documented by: Morphine Sulfate () 2 mg IV Q3H PRN PRN PRN Reason: Pain Score 4-5/10 Morphine Sulfate () 4 mg IV Q3H PRN PRN PRN Reason: Pain Score 6-10/10 Last Admin: 10/20/19 11:30 Dose: 4 mg Documented by: Ondansetron HCl (Zofran) 4 mg IV Q8H PRN PRN PRN Reason: NAUSEA/VOMITING Prochlorperazine Edisylate (Compazine Iv) 5 mg IV Q4H PRN PRN PRN Reason: Breakthrough nausea/vomiting Last Admin: 10/20/19 06:47 Dose: 5 mg Documented by: Sodium Chloride () 10 - 40 ml IV UD PRN PRN Reason: SALINE FLUSH Last Admin: 10/20/19 06:47 Dose: 10 ml Documented by: Assessment/Plan All Active Problems Acute distal small bowel obstruction (Acute) Abdominal pain (Acute) 44-year-old female. She appears to be chronically malnourished. Significant muscle wasting noted. History of complicated foregut surgery and pancreatectomy. This was not a Whipple procedure but a total pancreatectomy addition to spleen partial stomach and gallbladder with a subsequent operation for the appendix and to treat sepsis and leakage. This type of presentation would suggest reasonable likelihood of a hostile abdomen secondary to adhesions. She does have a slight amount of ascites. The small bowel caliber is significantly different from the distended and nondistended portions. It is of note that since the patient's arrival and stay in the emergency room and subsequent admission to the floor at all that time. Her NG tube was in the esophagus. We have made a readjustment now and there is some bilious material returning. I would allow her to have sips and chips of water as her oral mucosa is absolutely parched. I have encouraged her with assistance to be up and mobilizing. Fortunately clinically she currently has a benign abdomen. I will repeat abdominal x-rays in the morning. I appreciate the opportunity of assisting with her surgical care. I will follow her as long as she is present locally with you. Abdelrahman Young M.D., F.A.C.S.
[2019-10-20 17:40] LABS: Bedside Glucose 76 mg/dL (70-110)
[2019-10-20] MEDS: Dext 5%-0.45% NS 1,000 ML 125 ML IV (18:11)
[2019-10-20 21:02] VITALS: BP 140/107; PULSE 73; RESP 16; TEMP 37.1; O2SAT 100
[2019-10-20 23:16] LABS: Bedside Glucose 168 mg/dL (70-110)
--- NOTE | 2019-10-21 00:15 | NURSING ---
Report given to [facility] RN @ 0010. All of patients belongings have been packed up. Patient notified about transfer and consent signed.
[2019-10-21 00:26] VITALS: BP 142/89; PULSE 69; RESP 18; TEMP 36.9; O2SAT 96
--- NOTE | 2019-10-21 08:52 | DS.PCM_ITS ---
Discharge Date and Diagnosis Date of Admission: 10/19/19 Date of Discharge: 10/20/19 - Primary Discharge Diagnosis Acute Problems: #1 partial small bowel obstruction #2 cachexia #3 past history of pancreatic cancer with history of Whipple's procedure approximately 6 years ago #4 type 3 diabetes - Secondary Discharge Diagnosis Chronic Problems: Chronic Problems Polymyositis (Chronic) DVT (deep venous thrombosis) (Chronic) S/P insertion of IVC (inferior vena caval) filter (Chronic) Biliary dyskinesia (Chronic) Pancreatic cancer (Chronic) Hospital Course and Treatment Operations: None Procedures: None Summary of Care Provided: The patient is a 44 year old F in in the emergency room at [facility] with a chief complaint of nausea and vomiting with generalized abdominal pain. Patient had a past history of Whipple's procedure performed approximately 6 years prior. Cup in the emergency room showed the patient have a normal white blood cell count, chemistry profile was unremarkable except for a blood sugar of 171, urinalysis showed +2 bacteria but no red cells or white cells. CT of the abdomen and pelvis showed findings compatible with distal small bowel obstruction. Arrangements were made for the patient to be transferred from the emergency room to [facility] in [place] for further care due to her complicated medical history, unfortunately a bed was not available and the patient had to be admitted to [place] [id number], a NG tube was inserted in the ER and the patient was given IV fluids and labs were monitored. Patient was seen in consultation by general surgery who felt that the patient did have a distal small bowel obstruction, it was recommended that the patient be transferred to [facility]. Patient was seen and examined on 10/21/2019: On examination she appeared older than her stated age, she appeared cachectic,, she does not appear to be in any distress. NG tube is in place. Vital signs as documented. Skin warm and dry and without overt rashes. Neck without JVD, thyroid appears normal, trachea is midline, neck is supple. Lungs clear, normal air movement was noted. Heart exam notable for regular rhythm, normal sounds and absence of murmurs, rubs or gallops. Abdomen unremarkable and without evidence of organomegaly, masses, or abdominal aortic enlargement, bowel sounds are present in all 4 quadrants, no abdominal tenderness was noted. Extremities nonedematous, no cyanosis was noted, no clubbing was noted. Neuro: Cranial nerves II through XII are grossly intact, no focal motor deficits were noted, sensation to light touch and pinprick is intact, motor exam 5/5 throughout. Psych: Patient is alert and oriented x3, she does not appear anxious or depressed, she does not appear agitated. In the evening of 10/21/2019, availability of the bed was confirmed at [facility] in [place] and the patient was transferred there in stable condition. - Physical Exam Vitals/I&O's: Vital Signs Temp Pulse Resp BP Pulse Ox 98.5 F 69 18 142/89 H 96 10/21/19 00:26 10/21/19 00:26 10/21/19 00:26 10/21/19 00:26 10/21/19 00:26 Oxygen Delivery Method Room Air Weight: 49.4 kg Body Mass Index (BMI) 15.1 Finger Stick Blood Glucose 180 Intake and Output for Last 24 Hours 10/19/19 10/20/19 10/21/19 23:59 23:59 23:59 Intake Total 1111.67 / 1111.67 3051.67 / 3051.67 Output Total 750 / 750 300 / 300 Balance 1111.67 / 1111.67 2301.67 / 2301.67 -300 / -300 Laboratory Results 10/20/19 11:34: POC Glucose 84 10/20/19 17:35: POC Glucose 76 10/20/19 23:09: POC Glucose 168 H Home Medications: Medications to take at Discharge Escitalopram Oxalate [Lexapro] 20 mg PO DAILY 09/03/13 Levothyroxine [Synthroid] 75 mcg PO DAILY 09/03/13 Omeprazole [Prilosec] 20 mg PO BID 09/03/13 Lorazepam [Ativan] 1 mg PO BID PRN PRN 02/20/15 Cholecalciferol (Vitamin D3) [Decara] 50,000 unit PO QODAY 05/19/15 Hydroxychloroquine [Plaquenil] 200 mg PO DAILYCM 05/19/15 Insulin Lispro [Humalog] 80 unit SQ DAILY 05/19/15 Lipase/Protease/Amylase [Laina Durbin 12,000 Units Capsule] 9 tab PO TIDCM 05/19/15 Dalteparin Sodium,Porcine [Fragmin] 10,000 unit SQ DAILY #30 ml 06/02/18 Morphine Sulfate 15 mg PO BID 06/02/18 Teriparatide [Forteo] 20 mcg SQ DAILY 06/02/18 Metoclopramide [Reglan] 10 mg PO 4X/DAY PRN #20 tab 03/21/19 Primary Care Physician: Sahnda Mishra MD [Primary Care Provider] - Disposition: Acute care Hospital Minutes spent on discharge:: 32 Patient Condition:: Stable Medical Necessity - Tobacco Use Smoking Status: Current every day smoker Meaningful Use Info Meaningful Use Diagnoses (Choose all that apply): None applicable Inpatient E&M: 51150 Disch Hosp
== END 2019-10-21 01:30 | disposition short-term general hospital (02) | DRG 388 ==
LOC: ED 12:28 → MS3 10-20 06:32
PROVIDERS: Admitting Provider Internal Medicine; Emergency Provider Emergency Medicine; PCP Internal Medicine; Visit Provider Internal Medicine
DX: K56.51 Intestinal adhesions [bands], with partial obstruction (principal); E43 Unspecified severe protein-calorie malnutrition; R64 Cachexia; C78.7 Secondary malignant neoplasm of liver and intrahepatic bile duct; Z68.1 Body mass index [BMI] 19.9 or less, adult; M33.20 Polymyositis, organ involvement unspecified; C7A.8 Other malignant neuroendocrine tumors; Z90.411 Acquired partial absence of pancreas; Z85.07 Personal history of malignant neoplasm of pancreas; Z79.52 Long term (current) use of systemic steroids; Z86.718 Personal history of other venous thrombosis and embolism; F17.200 Nicotine dependence, unspecified, uncomplicated; Z79.4 Long term (current) use of insulin; Z79.899 Other long term (current) drug therapy; Z79.891 Long term (current) use of opiate analgesic; Z95.828 Presence of other vascular implants and grafts; E08.9 Diabetes mellitus due to underlying condition without complications; Z96.41 Presence of insulin pump (external) (internal); Z90.81 Acquired absence of spleen; Z90.3 Acquired absence of stomach [part of]
CPT/HCPCS: 36415; 74018; 74177; 80048; 80053; 81001; 82962; 83690; 83735; 84484; 85025; 97802; 99251; 99285; 99406; J7030; J7120; Q9967; A4216; G0463; J2405; J7799

== ENCOUNTER 2020-11-30 23:49 | Emergency (ER) | payer MEDICARE, SELFPAY ==
[2020-11-30 23:49] VITALS: BP 149/111; PULSE 76; RESP 18; TEMP 36.5; O2SAT 97; BMI 16.6
--- NOTE | 2020-12-01 00:02 | CT_ITS ---
STUDY: CT BRAIN WITHOUT CONTRAST REASON FOR EXAM: Female, 45 years old. fall RADIATION DOSAGE (If Supplied By Facility): CTDIvol = ( 44.99 ) mGy, DLP = ( 812.98 ) mGycm TECHNIQUE: Transaxial CT imaging of the brain was performed without administration of intravenous contrast material. Individualized dose optimization techniques were used for this CT. COMPARISON: 11/15/2016. FINDINGS: There is left posterolateral scalp hematoma measuring approximately 1.5 cm in thickness by 6.3 cm transverse dimension. Normal calvarium. Normal size ventricles and extra-axial spaces for the patient''s age. Normal white matter tracts of the cerebral hemispheres. Normal basal ganglia and thalami. Normal brainstem. Normal cerebellum. There is no intracranial hemorrhage. There are no findings of an acute ischemic infarction. Normal visualized paranasal sinuses. CT/Brain/Head without Contrast IMPRESSION: Left posterolateral scalp hematoma near the vertex. Otherwise normal unenhanced CT scan of the brain. Electronically Signed: Asia Ludwig MD at 1:14 EDT , Service support ,
--- NOTE | 2020-12-01 00:02 | RAD_ITS ---
STUDY: X-RAY - SACRUM/COCCYX REASON FOR EXAM: Female, 45 years old. fall TECHNIQUE: 3 view(s) of the sacrum and coccyx were obtained. COMPARISON: None. FINDINGS: There is degenerative arthrosis of the bilateral sacroiliac joints. There is demineralization of the sacral ala. Normal sacrococcygeal junction with a normal angulation. Normal coccygeal segments. The presacral soft tissue structures are unremarkable. There is no demonstrated fracture. RAD/Sacrum-Coccyx min 2 Views IMPRESSION: Diffuse osteopenia. No acute fracture or subluxation seen. Electronically Signed: Asia Ludwig MD at 1:12 EDT , Service support ,
--- NOTE | 2020-12-01 00:02 | CT_ITS ---
STUDY: CT CERVICAL SPINE WITHOUT CONTRAST REASON FOR EXAM: Female, 45 years old. fall RADIATION DOSAGE (If Supplied By Facility): CTDIvol = ( 12.01 ) mGy, DLP = ( 245.26 ) mGycm TECHNIQUE: High resolution transaxial imaging was performed without contrast material. Sagittal and coronal images were reconstructed. Individualized dose optimization techniques were used for this CT. COMPARISON: None FINDINGS: Normal craniovertebral junction. Normal anterior atlantoaxial articulation. Normal odontoid process. There is straightening of the normal cervical lordosis. This may be related to muscular spasm versus positioning. Normal vertebral bodies and posterior osseous elements. C2-3: Normal endplates. Normal disc height and morphology. Normal central canal and intervertebral neuroforamina. C3-4: Normal endplates. Normal disc height and morphology. Normal central canal and intervertebral neuroforamina. C4-5: Normal endplates. Normal disc height and morphology. Normal central canal and intervertebral neuroforamina. C5-6: Normal endplates. Normal disc height and morphology. Normal central canal and intervertebral neuroforamina. C6-7: Normal endplates. Normal disc height and morphology. Normal central canal and intervertebral neuroforamina. C7-T1: Normal endplates. Normal disc height and morphology. Normal central canal and intervertebral neuroforamina. Normal visualized soft tissue structures. CT/Spine Cervical without Contras IMPRESSION: No acute fracture or subluxation. Electronically Signed: Asia Ludwig MD at 1:15 EDT , Service support ,
--- NOTE | 2020-12-01 00:04 | EDS_ITS ---
HPI HPI - Fall History of Present Illness Chief Complaint: Fall Informant: patient Occured/Mechanism Occurred: Today Pain/Injury Pain Location: head and pelvis Current Severity: Mild Maximum Severity: Moderate Narrative Narrative: Patient presents secondary to fall. She has a history of polym yositis and states her legs gave out on her. She fell backwards striking the back of her head. She complaining of headache and pain to her tailbone. She denies loss of consciousness. She is not currently on anticoagulants. [facility] Medical History Pancreatic cancer Polymyositis Home Medications escitalopram oxalate 20 mg PO DAILY 09/03/13 [History Last Taken Unknown] levothyroxine 75 mcg PO DAILY 09/03/13 [History Last Taken Unknown] omeprazole 20 mg PO BID 09/03/13 [History Last Taken Unknown] lorazepam 1 mg PO BID PRN PRN 02/20/15 [History Last Taken Unknown] cholecalciferol (vitamin D3) [Decara] 50,000 unit PO QODAY 05/19/15 [History Last Taken Unknown] hydroxychloroquine 200 mg PO DAILYCM 05/19/15 [History Last Taken Unknown] insulin lispro [Humalog] 80 unit SQ DAILY 05/19/15 [History Last Taken Unknown] [id number]-[id number] [Laina Durbin 12,000 Units Capsule] 9 tab PO TIDCM 05/19/15 [History Last Taken Unknown] dalteparin (porcine) 10,000 unit SQ DAILY #30 ml 06/02/18 [Rx Last Taken Unknown] morphine 15 mg PO BID 06/02/18 [History Last Taken Unknown] teriparatide [Forteo] 20 mcg SQ DAILY 06/02/18 [History Last Taken Unknown] metoclopramide HCl 10 mg PO 4X/DAY PRN #20 tab 03/21/19 [Rx Last Taken Unknown] cyclobenzaprine 10 mg PO BID PRN #10 tab 12/01/20 [Rx Last Taken Unknown] Allergy/AdvReac Type Severity Reaction Status Date / Time Penicillins Allergy Swelling Verified 11/30/20 23:55 Sulfa (Sulfonamide Allergy Swelling Verified 11/30/20 23:55 Antibiotics) Surgical History S/P insertion of IVC (inferior vena caval) filter Social History Smoking Status: Current every day smoker tobacco type: pipe ROS ROS ED Constitutional Constitutional ED: Denies chills or fever(s) Eyes Eyes: Denies change in vision ENT ENT ED: Denies sore throat Cardiovascular Cardiovascular: Denies chest pain Respiratory/Chest Respiratory/Chest: Denies cough or dyspnea Gastrointestinal Gastrointestinal: Denies abdominal pain, diarrhea, nausea or vomiting Genitourinary Genitourinary ED: Denies dysuria Musculoskeletal Musculoskeletal: Reports other Details: Pain to tailbone ; Denies back pain Integumentary Denies rash Neurologic Neurologic: Reports headache(s); Denies weakness Allergic/Immunologic Allergic/Immunologic ED: Denies urticaria EXAM Physical Exam Const Vital Signs: 11/30/20 23:49 12/01/20 00:01 Temperature 97.7 F L Temperature Source Temporal Pulse Rate 76 Respiratory Rate 18 Blood Pressure 149/111 H Blood Pressure Mean 123 Pulse Ox 97 Oxygen Delivery Method Room Air Room Air Positive well nourished and well developed General Appearance ED: well developed HEENT HEENT Narrative: Hematoma left posterior parietal scalp. Abrasion noted on the scalp. No full-thickness laceration. Eyes PERRL and EOMs intact bilaterally Neck full ROM and supple Neck Narrative: No midline C-spine tenderness. Chest Wall inspection of chest normal and palpation of chest normal Resp normal respiratory effort and clear to auscultation bilaterally Cardio regular rate and regular rhythm GI non-tender Palpation: soft Extremity Extremity Narrative: 2+ edema bilateral lower extremities. Chronic venous skin changes. Neuro oriented x3 Neuro Narrative: No focal neurologic deficits. Sensorium / Orientation: alert Psych mental status grossly normal MDM MDM MDM Narrative Medical decision making narrative: CT scan of the head and C-spine obtained. Pelvis and sacrum/coccyx x-rays ordered. Patient was given her evening dose of p.o. morphine. Radiography Diagnostic Testing: Clinical Impression(s) from Imaging Studies Brain CT 12/01/20 00:02 IMPRESSION: Left posterolateral scalp hematoma near the vertex. Otherwise normal unenhanced CT scan of the brain. Electronically Signed: Asia Ludwig MD at 1:14 EDT , Service support , Cervical Spine CT 12/01/20 00:02 IMPRESSION: No acute fracture or subluxation. Electronically Signed: Asia Ludwig MD at 1:15 EDT , Service support , Sacrum and Coccyx X-Ray 12/01/20 00:02 IMPRESSION: Diffuse osteopenia. No acute fracture or subluxation seen. Electronically Signed: Asia Ludwig MD at 1:12 EDT , Service support , Pelvis X-Ray 12/01/20 00:30 IMPRESSION: Diffuse osteopenia along with multilevel degenerative disease as described. No acute fracture or subluxation. Electronically Signed: Asia Ludwig MD at 1:11 EDT , Service support , Treatment and Re-Evaluation Comments:: X-rays per my interpretation reveal no acute fractures. Radiologist interpretation reviewed. CT the head shows large scalp hematoma but no intracranial abnormality. CT C-spine normal. On repeat evaluation patient still having significant pain. She was given IM morphine and Zofran. Following this patient still noted significant pain and felt like she was have a lot of spasms in her back. She was given IM Norflex and another small dose of morphine. At this time she does feel like her spasms are starting to ease. She will continue her morphine at home and will be given a prescription for Flexeril. Return instructions provided. Discharge Plan Triage Chief Complaint: Fall ED Provider: Lolly Majano Dx/Rx/DC Orders Clinical Impression: Fall, Closed head injury, Hematoma of scalp, Contusion of back Instructions: ED Back Contusion, ED Scalp Contusion, ED Head Injury (Adult) Prescriptions: New cyclobenzaprine 10 mg tablet 10 mg PO BID PRN (Reason: muscle spasm) Qty: 10 RF: 0 No Action levothyroxine 75 MCG tablet 75 mcg PO DAILY RF: 0 omeprazole 20 MG capsule 20 mg PO BID RF: 0 escitalopram oxalate 10 MG tablet 20 mg PO DAILY RF: 0 lorazepam 0.5 MG tablet 1 mg PO BID PRN PRN (Reason: Anxiety) RF: 0 hydroxychloroquine 200 MG tablet 200 mg PO DAILYCM RF: 0 Humalog U-100 Insulin 100 UNIT/ML cartridge 80 unit SQ DAILY RF: 0 cholecalciferol (vitamin D3) [Decara] 50,000 UNIT capsule 50,000 unit PO QODAY RF: 0 Creon 1 EACH capsule,delayed release(DR/EC) 9 tab PO TIDCM RF: 0 morphine 15 MG tablet 15 mg PO BID RF: 0 Forteo 20 MCG/DOSE pen injector 20 mcg SQ DAILY RF: 0 dalteparin (porcine) 10,000 UNIT/ML syringe 10,000 unit SQ DAILY Qty: 30 RF: 0 metoclopramide HCl 10 MG tablet 10 mg PO 4X/DAY PRN (Reason: Headache) Qty: 20 RF: 0 Primary Care Provider: Shanda Mishra Referrals: Shanda Mishra MD [Primary Care Provider] - 1 Week Disposition Disposition: Home, Self Care
--- NOTE | 2020-12-01 00:30 | RAD_ITS ---
STUDY: X-RAY - PELVIS REASON FOR EXAM: Female, 45 years old. fall TECHNIQUE: One view of the pelvis was obtained. COMPARISON: None. FINDINGS: There is a non-specific bowel gas pattern. Normal visualized soft tissue structures. There is diffuse demineralization of the osseous structures. There is narrowing with cortical sclerosis and osteophyte formation of the sacroiliac joint consistent with degenerative osteoarthritic changes. Normal visualized bilateral superior and inferior pubic rami. There are degenerative changes of the pubic symphysis with articular narrowing and sclerosis. Normal ischial tuberosities. Normal visualized right femoral head. There is osteoarthritic spur formation of the right acetabular rim. There is mild articular joint space narrowing of the right hip. Normal visualized left femoral head. There is osteoarthritic spur formation of the left acetabular rim. There is mild articular joint space narrowing of the left hip. RAD/Pelvis 1 or 2 Views IMPRESSION: Diffuse osteopenia along with multilevel degenerative disease as described. No acute fracture or subluxation. Electronically Signed: Asia Ludwig MD at 1:11 EDT , Service support ,
[2020-12-01] MEDS: morphine SR 15 MG Tablet PO (00:39)
[2020-12-01] MEDS: Morphine 4 MG/ML Syringe 8 MG IM (01:24)
[2020-12-01] MEDS: Orphenadrine 60 MG/2 ML Ampul IM (02:25)
[2020-12-01] MEDS: Morphine 4 MG/ML Syringe IM (02:26)
[2020-12-01 04:08] VITALS: RESP 16
== END 2020-12-01 05:57 | disposition home or self-care (01) ==
PROVIDERS: Emergency Provider Emergency Medicine; PCP Internal Medicine
DX: S00.03XA Contusion of scalp, initial encounter (principal); S20.229A Contusion of unspecified back wall of thorax, initial encounter; M33.20 Polymyositis, organ involvement unspecified; F17.290 Nicotine dependence, other tobacco product, uncomplicated; W18.30XA Fall on same level, unspecified, initial encounter; Y93.89 Activity, other specified; Y92.89 Other specified places as the place of occurrence of the external cause; Y99.8 Other external cause status
CPT/HCPCS: 70450; 72125; 72170; 72220; 96372; 99284

== ENCOUNTER 2021-09-21 02:29 | Emergency (ER) | payer MEDICARE, SELFPAY ==
[2021-09-21 02:31] VITALS: BP 127/97; PULSE 83; RESP 18; TEMP 37; O2SAT 97
--- NOTE | 2021-09-21 03:32 | RAD_ITS ---
STUDY: X-RAY - RIGHT SHOULDER REASON FOR EXAM: Female, 46 years old. injury TECHNIQUE: 2 view(s) of the shoulder. COMPARISON: None. FINDINGS: Comminuted fracture of the surgical neck of the right humeral head without significant displacement. RAD/Shoulder min 2 Views IMPRESSION: As above Electronically Signed: Ian Diane DO at 5:31 EDT ,
[2021-09-21] MEDS: Ondansetron ODT 4 MG Tablet PO (04:02)
[2021-09-21] MEDS: HYDROmorphone 1 MG/ML Syringe 2 MG IM (04:03)
--- NOTE | 2021-09-21 04:25 | RAD_ITS ---
STUDY: X-RAY - UNILATERAL RIBS ( RIGHT ) WITH CHEST REASON FOR EXAM: Female, 46 years old. fall TECHNIQUE - RIBS: 4 view(s) of the ribs. TECHNIQUE - CHEST: Single frontal view of the chest. COMPARISON: None. FINDINGS - RIBS: Subtle mildly displaced right lateral ninth and 10th rib fractures. FINDINGS - CHEST: Right chest wall Mediport. The lungs are clear and expanded. There is no demonstrated pleural abnormality. Normal size heart. Normal mediastinum and jose cruz. Normal visualized pulmonary arteries. Normal visualized aortic arch and descending thoracic aorta. Normal visualized thoracic spine. Normal visualized ribs, clavicles, and shoulders. There is no demonstrated abnormality of the visualized soft tissue structures of the upper abdomen. RAD/Ribs Uni Min 3V w/PA Chest IMPRESSION: RIBS: Subtle and mildly displaced right lateral ninth and 10th rib fractures CHEST: Normal x-ray examination of the chest. Electronically Signed: Ian Diane DO at 5:31 EDT ,
[2021-09-21] MEDS: oxyCODONE 5 MG Tablet 10 MG PO (04:40)
--- NOTE | 2021-09-21 05:35 | EDS_ITS ---
HPI History of Present Illness Chief Complaint: Fall Narrative Narrative: Patient is a 46-year-old female with past medical history of pancreatic cancer. She is on hospice secondary to this. She states that she went to get out bed this morning when she had increased weakness in her legs which happens occasionally and this caused her to fall landing on her right side. She denies striking her head or any loss of consciousness or blood thinner use. She states she was able to call her friend who helped her up but she had increased pain in her ribs and shoulder. Therefore with concern for underlying injury she was brought in for evaluation. [facility] Medical History Pancreatic cancer Polymyositis Home Medications escitalopram oxalate 10 mg tablet 20 mg PO DAILY 09/03/13 [History Last Taken Unknown] levothyroxine 75 mcg tablet 75 mcg PO DAILY 09/03/13 [History Last Taken Unknown] omeprazole 20 mg capsule,delayed release 20 mg PO BID 09/03/13 [History Last Taken Unknown] lorazepam 0.5 mg tablet 1 mg PO BID PRN PRN Anxiety 02/20/15 [History Last Taken Unknown] cholecalciferol (vitamin D3) 1,250 mcg (50,000 unit) capsule (Decara) 50,000 unit PO QODAY 05/19/15 [History Last Taken Unknown] hydroxychloroquine 200 mg tablet 200 mg PO DAILYCM 05/19/15 [History Last Taken Unknown] insulin lispro 100 unit/mL subcutaneous cartridge (Humalog U-100 Insulin) 80 unit SQ DAILY 05/19/15 [History Last Taken Unknown] coehis-qrethdmx-vklnvyl 12,000-38,000-60,000 unit capsule,delayed rel (Creon) 9 tab PO TIDCM 05/19/15 [History Last Taken Unknown] dalteparin (porcine) 10,000 anti-Xa unit/mL subcutaneous syringe 10,000 unit SQ DAILY #30 mL 06/02/18 [Rx Last Taken Unknown] morphine 15 mg immediate release tablet 15 mg PO BID 06/02/18 [History Last Taken Unknown] teriparatide 20 mcg/dose (600 mcg/2.4 mL) subcutaneous pen injector (Forteo) 20 mcg SQ DAILY 06/02/18 [History Last Taken Unknown] metoclopramide HCl 10 mg tablet 10 mg PO 4X/DAY PRN Headache #20 tabs 03/21/19 [Rx Last Taken Unknown] cyclobenzaprine 10 mg tablet 10 mg PO BID PRN muscle spasm #10 tabs 12/01/20 [Rx Last Taken Unknown] Allergy/AdvReac Type Severity Reaction Status Date / Time Penicillins Allergy Swelling Verified 09/21/21 02:35 Sulfa (Sulfonamide Allergy Swelling Verified 09/21/21 02:35 Antibiotics) Surgical History S/P insertion of IVC (inferior vena caval) filter Social History Smoking Status: Current every day smoker tobacco type: pipe ROS ROS ED Constitutional Constitutional ED: Denies chills or fever(s) ENT ENT ED: Denies sore throat Cardiovascular Cardiovascular: Denies chest pain Respiratory/Chest Respiratory/Chest: Denies cough or dyspnea Gastrointestinal Gastrointestinal: Reports abdominal pain; Denies diarrhea, nausea or vomiting Genitourinary Genitourinary ED: Denies dysuria Musculoskeletal Musculoskeletal: Reports other Details: Positive right shoulder and right rib pain ; Denies back pain, myalgias or neck pain Integumentary Denies Abrasions or rash Neurologic Neurologic: Reports weakness; Denies headache(s) or paresthesias Hematologic/Lymphatic Hematologic/Lymphatic: Denies easy bleeding or easy bruising EXAM Physical Exam Const Vital Signs: 09/21/21 02:31 09/21/21 02:40 Temperature 98.6 F Temperature Source Oral Pulse Rate 83 Respiratory Rate 18 Respiratory Effort Normal Non-Labored Respiratory Depth Normal Respiratory Pattern Normal Blood Pressure 127/97 H Blood Pressure Mean 107 Pulse Ox 97 Oxygen Delivery Method Room Air Positive well nourished and well developed General Appearance ED: well developed HEENT HEENT Narrative: No signs of depressed or basilar skull fracture Eyes PERRL and EOMs intact bilaterally Neck supple Neck Narrative: No bony deformity or step-off of the cervical spine no midline pain with palpation Chest Wall palpation of chest normal Resp normal respiratory effort and clear to auscultation bilaterally Cardio regular rate and regular rhythm GI non-distended GI Narrative: Stomach is distended with hypoactive bowel sounds but there is no acute pain with palpation. No voluntary guarding or rigidity no pulsatile mass Auscultation: hypoactive bowel sounds Palpation: soft Back/Spine Back/Spine Narrative: No bony deformity or step-off of the thoracic or lumbar spine no midline pain with palpation Extremity Extremity Narrative: Pelvis is stable there is no shortening or external rotation of either lower extremity Right upper extremity is neurovascularly intact. Patient has pain with palpation of the right shoulder without obvious bony deformity or joint effusion There is pain with palpation of the right anterior lateral chest wall rib bird ons 8-10 without bony deformity or crepitance. Neuro oriented x3 and CN's II-XII intact bilaterally Sensorium / Orientation: alert Psych mental status grossly normal Skin no rashes or lesions noted Skin Narrative: No overlying abrasions or ecchymosis MDM MDM MDM Narrative Medical decision making narrative: Patient presented to the ER after mechanical fall. Therefore there is no need for cardiac or syncope work-up. She has not been on Eliquis for approximately 2 months and therefore there is no need for head CT. X-rays were obtained of a proximal humerus fracture as well as ninth and 10th rib fractures. Patient does not have a pneumothorax however and her upper extremity fracture is closed and she is neurovascularly intact. Therefore there is no need for admission at this time. The patient lives alone and with her increased pain does not feel like she could care for herself therefore hospice was contacted as she is currently under their care and they do agree to place her in respite care secondary to the increased pain from fractures. Radiography Diagnostic Testing: Clinical Impression(s) from Imaging Studies Shoulder X-Ray 09/21/21 03:32 IMPRESSION: As above Electronically Signed: Ian Diane DO at 5:31 EDT Reading Location ID and State: [employer] [facility] / [place] Tel , Service support , Ribs w/Chest X-Ray 09/21/21 04:25 IMPRESSION: RIBS: Subtle and mildly displaced right lateral ninth and 10th rib fractures CHEST: Normal x-ray examination of the chest. Electronically Signed: Ian Diane DO at 5:31 EDT Reading Location ID and State: [facility] [facility] / [place] Tel , Service support , X-ray of the right shoulder as interpreted by the ER physician displays a nondisplaced proximal humerus fracture X-ray of the right ribs as interpreted by the emergency medicine physician reveals a slightly displaced right ninth and 10th rib fracture without pneumothorax Discharge Plan Triage Chief Complaint: Fall ED Provider: Priyank Dowell Dx/Rx/DC Orders Clinical Impression: Closed fracture of proximal end of right humerus, Right rib fracture, Pancreatic cancer Instructions: ED Rib Fracture, ED Fracture, Shoulder Prescriptions: No Action levothyroxine 75 MCG tablet 75 mcg PO DAILY omeprazole 20 MG capsule 20 mg PO BID escitalopram oxalate 10 MG tablet 20 mg PO DAILY lorazepam 0.5 MG tablet 1 mg PO BID PRN PRN (Reason: Anxiety) hydroxychloroquine 200 MG tablet 200 mg PO DAILYCM Humalog U-100 Insulin 100 UNIT/ML cartridge 80 unit SQ DAILY Label Comments: INSULIN PUMP cholecalciferol (vitamin D3) [Decara] 50,000 UNIT capsule 50,000 unit PO QODAY Label Comments: EVERY 4 DAYS Creon 1 EACH capsule,delayed release(DR/EC) 9 tab PO TIDCM Label Comments: WITH MEALS AND BEDTIME morphine 15 MG tablet 15 mg PO BID Label Comments: take 1/2 to 1 tablet by mouth every 4 hours if needed for pain Forteo 20 MCG/DOSE pen injector 20 mcg SQ DAILY Label Comments: inject 20 MCGS subcutaneously once daily dalteparin (porcine) 10,000 UNIT/ML syringe 10,000 unit SQ DAILY Qty: 30 0RF metoclopramide HCl 10 MG tablet 10 mg PO 4X/DAY PRN (Reason: Headache) Qty: 20 0RF cyclobenzaprine 10 mg tablet 10 mg PO BID PRN (Reason: muscle spasm) Qty: 10 0RF Primary Care Provider: Shanda Mishra Referrals: Shanda Mishra MD [Primary Care Provider] - Garry Quintanilla MD [Med Staff - Active Staff] - 3-5 Days Activity Restrictions/Additional Instructions: Please wear your sling for stabilization of your fracture and follow-up with orthopedics for repeat evaluation Disposition Disposition: Home, Self Care
[2021-09-21 06:46] VITALS: BP 115/79; PULSE 75; RESP 18
== END 2021-09-21 06:53 | disposition home or self-care (01) ==
PROVIDERS: Emergency Provider Emergency Medicine; PCP Internal Medicine; Visit Provider Emergency Medicine
DX: S42.201A Unspecified fracture of upper end of right humerus, initial encounter for closed fracture (principal); S22.41XA Multiple fractures of ribs, right side, initial encounter for closed fracture; F17.290 Nicotine dependence, other tobacco product, uncomplicated; W06.XXXA Fall from bed, initial encounter; Z79.899 Other long term (current) drug therapy; Z85.07 Personal history of malignant neoplasm of pancreas
CPT/HCPCS: 71101; 73030; 96372; 99284